=== PATIENT | female | born 1995 | race Two or more races ===

== ENCOUNTER 2023-05-15 19:00 | Observation (INO) | payer OTHER ==
[~2023-05-15] VITALS: Ht 160 cm; Wt 86.6 kg
[2023-05-15] MEDS ORDERED: LACTATED RINGER'S 2,600 ML IV ONE (20:45)
[2023-05-15 22:02] LABS: Basophils # (auto) 0.1 10 ^3/uL (0-0.2); Basophils % (auto) 0.4 % (0.0-2.0); Eosinophils # (auto) 0.1 10 ^3/uL (0-0.8); Eosinophils % (auto) 0.9 % (0.0-7.0); Hemoglobin 10.1 g/dL (12.2-16.2); Lymphocytes # (auto) 2.8 10 ^3/uL (0.4-5.4); Mean Corpuscular Hemoglobin 25.4 pg (28.0-32.0); Mean Corpuscular Hgb Conc. 32.7 g/dL (32.0-36.0); Mean Corpuscular Volume 77.6 fL (80.0-100.0); Monocytes # (auto) 0.7 10 ^3/uL (0-1.3); Monocytes % (auto) 5.1 % (0.0-12.0); Neutrophils # (auto) 9.8 10 ^3/uL (1.6-8.6); Neutrophils % (auto) 72.6 % (37.0-80.0); Red Blood Cells 3.99 10^6/uL (4.0-5.20); Red Cell Distribution Width 14.2 % (11.8-14.3); White Blood Cell 13.5 10^3/uL (4.4-10.8)
[2023-05-15 22:19] LABS: Alanine Aminotransferase 11 U/L (7-40); Albumin 3.7 g/dL (3.2-4.8); Alkaline Phosphatase 95 U/L (46-116); Anion Gap 10 (5-15); Aspartate Aminotransferase 12 U/L (13-40); Blood Urea Nitrogen 6 mg/dL (9-23); Calcium 8.9 mg/dL (8.5-10.1); Carbon Dioxide 20 mmol/L (20-30); Chloride 107 mmol/L (98-107); Glucose 73 mg/dL (74-106); INR 0.98 (0.9-1.15); Partial Thromboplastin Time 30.3 SEC (24.5-34.5); Potassium 3.4 mmol/L (3.5-5.1); Prothrombin Time 10.3 sec (9.3-11.8); Sodium 137 mmol/L (136-145)
[2023-05-15 22:20] LABS: Bilirubin, Total 0.5 mg/dL (0.2-1.0); Total Protein 6.3 g/dL (5.7-8.2)
[2023-05-15 22:25] LABS: Protein, Urine 38.4 mg/dL (0.0-11.9)
[2023-05-15 22:26] LABS: Urine Bacteria NONE SEEN /hpf (None Seen); Urine Blood Negative /uL (Negative); Urine Clarity Clear (Clear); Urine Color Yellow (Yellow); Urine Mucus FEW (None Seen); Urine Protein, UAD 1+ (Negative); Urine Specific Gravity 1.025 (1.001-1.035); Urine WBC 1 /hpf (0 - 5)
[2023-05-15 22:27] LABS: Amphetamine Screen, Urine Neg (NEGATIVE); Barbiturate Scree,Urine Neg (NEGATIVE); Benzodiazephine Screen, Urine Neg (NEGATIVE); Cannabinoid Screen, Urine Pos (NEGATIVE); Cocaine Screen, Urine Neg (NEGATIVE); Creatinine, Urine 171.32 mg/dL (30.0-125.0); Opiate Scree,Urine Neg (NEGATIVE); Phencyclidine Screen, Urine Neg (NEGATIVE); Urine Protein/Creatinine Ratio 0.22
[2023-05-15 22:35] LABS: Uric Acid 4.2 mg/dL (3.1-7.8)
[2023-05-15] MEDS ORDERED: FERR30CA PO (22:57)
[2023-05-15] MEDS ORDERED: PREN-96 PO (22:57)
[2023-05-17 07:06] LABS: Rubella Antibodies, IgG 1.62 index (Immune >0.99)
[2023-05-17 08:06] LABS: RPR Non Reactive (Non Reactive)
== END 2023-05-15 23:14 | disposition home or self-care (01) ==
LOC: LDRP 19:00
PROVIDERS: ADMIT Obstetrics & Gynecology; ATTEND Obstetrics & Gynecology
DX: O99.343 Other mental disorders complicating pregnancy, third trimester (principal); F31.9 Bipolar disorder, unspecified; F43.10 Post-traumatic stress disorder, unspecified; Q23.4 Hypoplastic left heart syndrome; O99.013 Anemia complicating pregnancy, third trimester; W19.XXXA Unspecified fall, initial encounter; Y92.89 Other specified places as the place of occurrence of the external cause; Y93.89 Activity, other specified; Y99.8 Other external cause status
CPT/HCPCS: 36415; 59025; 76805; 80053; 80307; 81001; 81002; 82570; 83036; 84156; 84550; 85025; 85610; 85730; 86592; 86703; 86762; 86850; 86900; 86901; 87340; 94760; 96360; 96361

== ENCOUNTER 2023-05-22 11:44 | Observation (INO) | payer OTHER ==
[~2023-05-22] VITALS: Ht 160 cm; Wt 86.6 kg
[~2023-05-22 11:44] MED LIST: FERR30CA PO; PREN-96 PO
[2023-05-22] MEDS ORDERED: LACTATED RINGER'S 1,000 ML IV ONE (12:45)
[2023-05-22] MEDS ORDERED: ONDANSETRON HCL 4 MG/2 ML VIAL IV ONE (12:45)
[2023-05-22] MEDS ORDERED: DIPHENOXYLATE W/ATROPINE 2.5 MG TAB PO ONE (12:45)
[2023-05-22 13:52] LABS: COVID19 ANTIGEN SOFIA FIA NEGATIVE (NEGATIVE); Rapid Influenza A Negative (Negative); Rapid Influenza B Negative (Negative)
== END 2023-05-22 14:52 | disposition home or self-care (01) ==
LOC: LDRP 11:44 → UNDOADMOB 11:44 → LDRP 12:45
PROVIDERS: ADMIT Obstetrics & Gynecology; ATTEND Obstetrics & Gynecology
DX: O21.2 Late vomiting of pregnancy (principal); Z20.822 Contact with and (suspected) exposure to COVID-19; O26.893 Other specified pregnancy related conditions, third trimester; E86.0 Dehydration; Z3A.31 31 weeks gestation of pregnancy
CPT/HCPCS: 36415; 59025; 81002; 87426; 87804; 94760; 96374; G0378; J2405; 96360; 96361

== ENCOUNTER 2023-07-11 10:07 | Observation (INO) | payer MEDICAID, OTHER ==
[~2023-07-11] VITALS: Ht 160 cm; Wt 88.0 kg
[2023-07-11 12:08] LABS: Fern Testing Negative
[2023-07-11] MEDS ORDERED: LACTATED RINGER'S 1,000 ML IV ONE (12:45)
== END 2023-07-11 15:00 | disposition home or self-care (01) ==
LOC: LDRP 10:07 → UNDOADMOB 10:07 → LDRP 10:35
PROVIDERS: ADMIT Obstetrics & Gynecology; ATTEND Obstetrics & Gynecology
DX: O26.893 Other specified pregnancy related conditions, third trimester (principal); R10.2 Pelvic and perineal pain; R10.9 Unspecified abdominal pain; O62.9 Abnormality of forces of labor, unspecified; Z3A.38 38 weeks gestation of pregnancy
CPT/HCPCS: 59025; 76818; 81002; 84112; 94760; 96360; G0378; Q0114

== ENCOUNTER 2023-07-19 09:48 | Observation (INO) | payer MEDICAID | END 2023-07-19 11:14 | disposition home or self-care (01) | LOC: LDRP 09:48 → UNDOADMOB 09:48 → LDRP 10:44 → UNDODISOB 11:14 | PROVIDERS: ADMIT Obstetrics & Gynecology; ATTEND Obstetrics & Gynecology | DX: O47.1 False labor at or after 37 completed weeks of gestation (principal); O99.323 Drug use complicating pregnancy, third trimester; F12.90 Cannabis use, unspecified, uncomplicated; Z3A.39 39 weeks gestation of pregnancy; Z91.040 Latex allergy status | CPT/HCPCS: 59025; 81002; 94760; G0378 ==

== ENCOUNTER 2023-07-19 20:14 | Inpatient (IN) | payer MEDICAID ==
[~2023-07-19] VITALS: Ht 160 cm; Wt 88.5 kg
[2023-07-19 21:45] LABS: Fern Testing Negative
[2023-07-20] MEDS ORDERED: MORPHINE SULFATE 4 MG/ML SYR/VIAL IM ONE
[2023-07-20] MEDS ORDERED: PROMETHAZINE HCL 25 MG/ML 1ML IV ONE
[2023-07-20] MEDS ORDERED: MORPHINE SULFATE 4 MG/ML SYR/VIAL ONE (00:06)
[2023-07-20] MEDS ORDERED: PROMETHAZINE HCL 25 MG/ML 1ML ONE (00:06)
[2023-07-20] MEDS ORDERED: DERMOPLAST 60ML BOTTLE TOP PRN (04:15)
[2023-07-20] MEDS ORDERED: PENICILLIN G POT 5MIL/D5 50ML 50 ML IV ONE ×2 (04:15→04:45)
[2023-07-20] MEDS ORDERED: PROMETHAZINE HCL 25 MG/ML 1ML IV PRN (04:15)
[2023-07-20] MEDS ORDERED: WITCH HAZEL-GLYCERIN PAD TOP PRN (04:15)
[2023-07-20] MEDS ORDERED: LACTATED RINGER'S 1,000 ML IV SCH (04:15)
[2023-07-20] MEDS ORDERED: PHISODERM TOP SOLN 240ML BTL TOP PRN (04:15)
[2023-07-20] MEDS ORDERED: LIDOCAINE 2%HCL (LOCAL ANESTH.) INJ 20ML MDV IJ PRN (04:15)
[2023-07-20] MEDS ORDERED: BUTORPHANOL TARTRATE 2 MG/1 ML VIAL IV PRN ×2 (04:15)
[2023-07-20 04:37] LABS: Basophils # (auto) 0 10 ^3/uL (0-0.2); Basophils % (auto) 0.2 % (0.0-2.0); Monocytes # (auto) 0.8 10 ^3/uL (0-1.3)
[2023-07-20 04:38] LABS: Eosinophils # (auto) 0.2 10 ^3/uL (0-0.8); Eosinophils % (auto) 1.1 % (0.0-7.0); Hematocrit 30.4 % (36.0-46.0); Hemoglobin 9.9 g/dL (12.2-16.2); Lymphocytes % (auto) 19.1 % (10.0-50.0); Mean Corpuscular Hemoglobin 24.5 pg (28.0-32.0); Mean Corpuscular Hgb Conc. 32.6 g/dL (32.0-36.0); Mean Corpuscular Volume 75.2 fL (80.0-100.0); Monocytes % (auto) 5.2 % (0.0-12.0); Neutrophils # (auto) 11.6 10 ^3/uL (1.6-8.6); Neutrophils % (auto) 74.4 % (37.0-80.0); Red Blood Cells 4.05 10^6/uL (4.0-5.20); Red Cell Distribution Width 14.7 % (11.8-14.3); White Blood Cell 15.6 10^3/uL (4.4-10.8)
[2023-07-20 04:53] LABS: Alanine Aminotransferase 11 U/L (7-40); Albumin 3.8 g/dL (3.2-4.8); Alkaline Phosphatase 158 U/L (46-116); Anion Gap 5 (5-15); Aspartate Aminotransferase 12 U/L (13-40); Bilirubin, Total 0.4 mg/dL (0.2-1.0); Calcium 8.8 mg/dL (8.7-10.4); Carbon Dioxide 23 mmol/L (20-30); Chloride 107 mmol/L (98-107); Glucose 76 mg/dL (74-106); Potassium 3.6 mmol/L (3.5-5.1); Sodium 135 mmol/L (136-145); Total Protein 6.5 g/dL (5.7-8.2)
[2023-07-20 04:55] LABS: INR 0.93 (0.9-1.15); Partial Thromboplastin Time 29.7 SEC (24.5-34.5); Prothrombin Time 9.8 sec (9.3-11.8)
[2023-07-20 05:08] LABS: BUN/Creatinine Ratio 8.5 (10.0-20.0); Blood Urea Nitrogen < 5 mg/dL (9-23)
[2023-07-20] MEDS ORDERED: BUTORPHANOL TARTRATE 2 MG/1 ML VIAL ONE (05:20)
[2023-07-20 05:31] LABS: Urine Bacteria NONE SEEN /hpf (None Seen); Urine Blood 2+ /uL (Negative); Urine Clarity Clear (Clear); Urine Color Yellow (Yellow); Urine Mucus FEW (None Seen); Urine Protein, UAD Negative (Negative); Urine Specific Gravity 1.012 (1.001-1.035); Urine Urobilinogen Normal (Negative); Urine WBC 10 /hpf (0 - 5)
[2023-07-20 05:40] LABS: Amphetamine Screen, Urine Neg (NEGATIVE); Barbiturate Scree,Urine Neg (NEGATIVE); Benzodiazephine Screen, Urine Neg (NEGATIVE); Cannabinoid Screen, Urine Pos (NEGATIVE); Cocaine Screen, Urine Neg (NEGATIVE); Opiate Scree,Urine Pos (NEGATIVE); Phencyclidine Screen, Urine Neg (NEGATIVE)
[2023-07-20] MEDS ORDERED: TERBUTALINE SULFATE 1 MG/ML 1ML VIAL SC PRN (05:45)
[2023-07-20] MEDS ORDERED: LACT. RINGERS/OXYTOCIN 20UNITS 1,000 ML IV SCH (05:45)
[2023-07-20] MEDS ORDERED: fentaNYL CITRATE 100 MCG/2 ML VL IV ONE (06:45)
[2023-07-20] MEDS ORDERED: ePHEDrine SULFATE 50 MG/ML AMP IV ONE (06:45)
[2023-07-20] MEDS ORDERED: NALOXONE HCL 0.4 MG/ML VIAL IV ONE (06:45)
[2023-07-20] MEDS ORDERED: LACTATED RINGER'S 2,000 ML IV ONE (06:45)
[2023-07-20] MEDS ORDERED: fentaNYL CITRATE 100 MCG/2 ML VL ONE (06:54)
[2023-07-20] MEDS ORDERED: ePHEDrine SULFATE 50 MG/ML AMP ONE (06:55)
[2023-07-20] MEDS ORDERED: ROPIVACAINE HCL 100 ML ONE ×2 (06:55→12:52)
[2023-07-20] MEDS ORDERED: LACT. RINGERS/OXYTOCIN 20UNITS 500 ML IV ONE ×2 (08:00→08:30)
[2023-07-20] MEDS ORDERED: LACT. RINGERS/OXYTOCIN 20UNITS 1,000 ML IV ONE (08:06)
[2023-07-20] MEDS ORDERED: PENICILLIN G POTASSIUM 2,500,000 UNITS in D5W 5% 50 ML IV SCH (08:15)
[2023-07-20] MEDS ORDERED: PENICILLIN G POT 5MILLION UNIT VIAL ONE (09:02)
[2023-07-20] MEDS ORDERED: PHISODERM TOP SOLN 240ML BTL TOP ONE (10:30)
[2023-07-20] MEDS ORDERED: WITCH HAZEL-GLYCERIN PAD TOP ONE (10:30)
[2023-07-20] MEDS ORDERED: LIDOCAINE 2%HCL (LOCAL ANESTH.) INJ 20ML MDV ONE (10:30)
[2023-07-20] MEDS ORDERED: DERMOPLAST 60ML BOTTLE TOP ONE (10:30)
[2023-07-20] MEDS ORDERED: ONDANSETRON ODT 4 MG TAB PO PRN (16:30)
[2023-07-20] MEDS ORDERED: ACETAMINOPHEN 325 MG TAB PO PRN (16:30)
[2023-07-20] MEDS ORDERED: IBUPROFEN 600 MG TAB PO ONE (18:59)
[2023-07-20 19:00] VITALS: BP 126/74; PULSE 95; RESP 18; TEMP 98.5; O2SAT 98
[2023-07-20] MEDS: IBUPROFEN 600 MG TAB PO PRN (19:01)
[2023-07-20] MEDS ORDERED: DOCUSATE SOD 100 MG CAP PO SCH (22:00)
[2023-07-20 22:42] VITALS: BP 137/85; PULSE 88; RESP 18; TEMP 97.9; O2SAT 98
[2023-07-20] MEDS ORDERED: DOCUSATE SOD 100 MG CAP PO ONE (22:50)
[2023-07-21 03:00] VITALS: BP 130/84; PULSE 90; RESP 18; TEMP 98; O2SAT 99
[2023-07-21] MEDS: IBUPROFEN 600 MG TAB PO PRN (05:40)
[2023-07-21 07:16] VITALS: BP 120/62; PULSE 93; RESP 17; TEMP 97.7; O2SAT 97
[2023-07-21 10:54] VITALS: BP 129/69; PULSE 81; RESP 17; TEMP 98.2; O2SAT 97
[2023-07-23 05:07] LABS: RPR Non Reactive (Non Reactive)
== END 2023-07-21 14:15 | disposition home or self-care (01) | DRG 560 ==
LOC: LDRP 20:14 → OBSVTOIN 07-20 03:53 → LDRP 07-20 03:54
PROVIDERS: ADMIT Obstetrics & Gynecology; ATTEND Obstetrics & Gynecology
PROC: 10D07Z6 Extraction of Products of Conception, Vacuum, Via Natural or Artificial Opening (ICD-10-PCS; principal; 2023-07-20)
PROC: 3E0R3BZ Introduction of Anesthetic Agent into Spinal Canal, Percutaneous Approach (ICD-10-PCS; 2023-07-20)
PROC: 00HU33Z Insertion of Infusion Device into Spinal Canal, Percutaneous Approach (ICD-10-PCS; 2023-07-20)
PROC: 0UQGXZZ Repair Vagina, External Approach (ICD-10-PCS; 2023-07-20)
DX: O48.0 Post-term pregnancy (principal); Z37.0 Single live birth; O71.4 Obstetric high vaginal laceration alone; D50.9 Iron deficiency anemia, unspecified; O99.02 Anemia complicating childbirth; O99.824 Streptococcus B carrier state complicating childbirth; Z3A.39 39 weeks gestation of pregnancy; Z88.6 Allergy status to analgesic agent
CPT/HCPCS: 36415; 59025; 59409; 62282; 76818; 80053; 80307; 81001; 81002; 84112; 85025; 85610; 85730; 86592; 86850; 86900; 86901; 94760; 96365; 96366; 96372; G0378; J2540; J2590; J7060

== ENCOUNTER 2024-06-25 07:05 | Observation (INO) | payer MEDICAID ==
[~2024-06-25] VITALS: Ht 160 cm; Wt 91.6 kg
== END 2024-06-25 08:07 | disposition home or self-care (01) ==
LOC: LDRP 07:05
PROVIDERS: ADMIT Obstetrics & Gynecology; ATTEND Obstetrics & Gynecology
DX: O36.8120 Decreased fetal movements, second trimester, not applicable or unspecified (principal); O99.332 Smoking (tobacco) complicating pregnancy, second trimester; F17.210 Nicotine dependence, cigarettes, uncomplicated; O99.322 Drug use complicating pregnancy, second trimester; F12.90 Cannabis use, unspecified, uncomplicated; Z3A.21 21 weeks gestation of pregnancy; Z88.6 Allergy status to analgesic agent; Z91.02 Food additives allergy status; Z79.899 Other long term (current) drug therapy
CPT/HCPCS: 59025; 81002; 94760; G0378

== ENCOUNTER 2024-08-17 10:53 | Observation (INO) | payer MEDICAID ==
[2024-08-17 11:46] LABS: Basophils # (auto) 0.1 10 ^3/uL (0-0.2); Eosinophils # (auto) 0.1 10 ^3/uL (0-0.8); Eosinophils % (auto) 0.9 % (0.0-7.0); Lymphocytes # (auto) 2.2 10 ^3/uL (0.4-5.4); Red Cell Distribution Width 14.9 % (11.8-14.3); White Blood Cell 11.9 10^3/uL (4.4-10.8)
[2024-08-17 11:48] LABS: Basophils % (auto) 0.6 % (0.0-2.0); Hematocrit 32.9 % (36.0-46.0); Hemoglobin 10.6 g/dL (12.2-16.2); Lymphocytes % (auto) 18.3 % (10.0-50.0); Mean Corpuscular Hemoglobin 24.2 pg (28.0-32.0); Mean Corpuscular Hgb Conc. 32.2 g/dL (32.0-36.0); Mean Corpuscular Volume 75.2 fL (80.0-100.0); Monocytes # (auto) 0.6 10 ^3/uL (0-1.3); Monocytes % (auto) 5.4 % (0.0-12.0); Neutrophils # (auto) 8.9 10 ^3/uL (1.6-8.6); Neutrophils % (auto) 74.8 % (37.0-80.0); Nucleated Red Blood Cells % 0.1 %; Platelet Count (auto) 234 10^3/uL (140-450); Red Blood Cells 4.38 10^6/uL (4.0-5.20)
--- NOTE | 2024-08-17 12:04 | DVH ---
LIMITED OB ULTRASOUND > 14 WKS: HISTORY: PTL/PIH R/O TECHNIQUE: Multiple real-time grayscale images of the gravid uterus with duplex Doppler color flow an d M-mode spectral analysis. TRANSDUCER: Trans abdominal FINDINGS: IUP single live fetus at 27 weeks 6 days based on composite averages of the BPD, head circumference, abdominal circumference and femur length Estimated weight 1166 grams heart rate 133 beats per minute VINEET 9.9 cm Cervix measures 3.4 cm. Cephalic Presentation Posterior Placenta without previa or abruption. The placenta appears low lying. IMPRESSION: IUP single live fetus at 27 weeks 6 days AUA corresponding to an BLAIRE of 11/10/24. The placenta appears low lying.
[2024-08-17 12:06] LABS: Alanine Aminotransferase 13 U/L (7-40); Albumin 3.9 g/dL (3.2-4.8); Anion Gap 7 (5-15); BUN/Creatinine Ratio 11.1 (10.0-20.0); Bilirubin, Total 0.4 mg/dL (0.2-1.0); Calcium 9.6 mg/dL (8.7-10.4); Carbon Dioxide 22 mmol/L (20-31); Chloride 107 mmol/L (98-107); Glucose 85 mg/dL (74-106); Potassium 3.7 mmol/L (3.5-5.1); Sodium 136 mmol/L (136-145); Total Protein 6.7 g/dL (5.7-8.2)
[2024-08-17 12:12] LABS: Alkaline Phosphatase 124 U/L (46-116); Aspartate Aminotransferase 13 U/L (13-40); Blood Urea Nitrogen 7 mg/dL (9-23)
[2024-08-17 12:13] LABS: Urine Bacteria None Seen /hpf (None Seen)
[2024-08-17 12:21] LABS: INR 0.93 (0.9-1.15); Partial Thromboplastin Time 30.2 SEC (24.5-34.5); Prothrombin Time 9.9 sec (9.3-11.8)
[2024-08-17 12:27] LABS: Urine Blood Negative /uL (Negative); Urine Clarity Clear (Clear); Urine Color Yellow (Yellow); Urine Protein, UAD TRACE (Negative); Urine Specific Gravity 1.024 (1.001-1.035); Urine Squamous Epithelial Cell FEW /hpf (<5); Urine Urobilinogen 2 mg/dL (Negative); Urine WBC 1 /hpf (0 - 5)
[2024-08-17 12:38] LABS: Protein, Urine 31.3 mg/dL (1-14)
[2024-08-17 12:41] LABS: Creatinine, Urine 140.92 mg/dL (30.0-125.0); Urine Protein/Creatinine Ratio 0.22
--- NOTE | 2024-08-17 13:02 | DVHDS2 ---
Physician Discharge Progress N Final Diagnosis: IUP 27 wk, migraine headache PIH ruled out Pelvic pressure, labor ruled out Operations or Procedures: Operations or Procedures PIH labs OB Ultrasound WNL cx length, no contractions NST Commentary: Commentary BP's all normal, urine prot / cr ratio < 0.3 (Normal) Condition on Discharge: Stable Disposition: Home Discharge Instructions: Diet: Regular Activity: Light activity Follow Up/Referral: F/U w/ Maternal health MD as scheduled Medications: N/A Follow Up Care: Discharge Statement: "Patient was advised to return to the ER or call 911 if any headaches, dizziness, shortness of breath, chest pain, abdominal pain, bleeding, fevers, or worsening of medical condition. Patient was counseled about treatment plan, medications, possible side effects, patientverbalized understanding. All questions were answered to the best of my ability. This discharge took greater then 30 minutes in planning, reviewing documentation, counseling the patient, and discussing with other team members." SONIDO ROONEY DO Aug 17, 2024 13:02
== END 2024-08-17 13:20 | disposition home or self-care (01) ==
LOC: LDRP 10:53 → UNDOADMOB 10:53 → LDRP 11:04 → UNDODISOB 13:20
PROVIDERS: ADMIT Obstetrics & Gynecology; ATTEND Obstetrics & Gynecology
DX: O99.352 Diseases of the nervous system complicating pregnancy, second trimester (principal); G43.909 Migraine, unspecified, not intractable, without status migrainosus; Z3A.27 27 weeks gestation of pregnancy; Z79.899 Other long term (current) drug therapy; Z98.890 Other specified postprocedural states
CPT/HCPCS: 36415; 59025; 76815; 80053; 81001; 81002; 82570; 84156; 84550; 85025; 85610; 85730; 94760; G0378

== ENCOUNTER 2024-09-12 10:36 | Observation (INO) | payer MEDICAID ==
[~2024-09-12] VITALS: Ht 160 cm; Wt 93.4 kg
[2024-09-12 11:05] LABS: Urine Bacteria FEW /hpf (None Seen); Urine Blood Negative /uL (Negative); Urine Color Light-Yellow (Yellow); Urine Mucus FEW (None Seen); Urine Protein, UAD TRACE (Negative); Urine Specific Gravity 1.018 (1.001-1.035); Urine Squamous Epithelial Cell MOD /hpf (<5); Urine Urobilinogen Normal (Negative); Urine WBC 2 /HPF (0-5)
[2024-09-12 11:07] LABS: Urine Clarity Hazy (Clear)
[2024-09-12] MEDS: ACETAMINOPHEN 325 MG TAB PO ONE (11:55)
--- NOTE | 2024-09-13 07:49 | DVHDS2 ---
Physician Discharge Progress N Final Diagnosis: Abdominal pain UTI Secondary Diagnosis: NST Operations or Procedures: Operations or Procedures NST Condition on Discharge: Stable Disposition: Home Discharge Instructions: Diet: Regular Activity: Light activity Activity comment: Pelvic rest, PTL precautions discussed Follow Up/Referral: Keep all regularly scheduled OB appointments Medications: Rx Macrobid 100mg PO BID, Tylenol OTC prn pain Follow Up Care: Discharge Statement: "Patient was advised to return to the ER or call 911 if any headaches, dizziness, shortness of breath, chest pain, abdominal pain, bleeding, fevers, or worsening of medical condition. Patient was counseled about treatment plan, medications, possible side effects, patientverbalized understanding. All questions were answered to the best of my ability. This discharge took greater then 30 minutes in planning, reviewing documentation, counseling the patient, and discussing with other team members." Visit Coding OBGYN Date of Service: Sep 12, 2024 Billing Provider: SONIDO ROONEY DO DRAG OUT MAN Common Visit Codes: 26601-GMA/OBS SAME DATE (MOD) DRAG OUT MAN Procedure Codes: 19058-63- NON-STRESS TEST SONIDO ROONEY DO Sep 13, 2024 07:49
== END 2024-09-12 12:08 | disposition home or self-care (01) ==
LOC: LDRP 10:36
PROVIDERS: ADMIT Obstetrics & Gynecology; ATTEND Obstetrics & Gynecology
DX: O23.43 Unspecified infection of urinary tract in pregnancy, third trimester (principal); N39.0 Urinary tract infection, site not specified; O99.891 Other specified diseases and conditions complicating pregnancy; M54.9 Dorsalgia, unspecified; R10.9 Unspecified abdominal pain; Z98.890 Other specified postprocedural states; Z79.899 Other long term (current) drug therapy; Z3A.32 32 weeks gestation of pregnancy
CPT/HCPCS: 59025; 81001; 81002; 87086; 94760; G0378

== ENCOUNTER 2024-09-26 18:24 | Observation (INO) | payer OTHER, MEDICAID ==
--- NOTE | 2024-09-26 20:03 | DVH ---
LIMITED OB ULTRASOUND > 14 WKS: HISTORY: placental position and cervical length TECHNIQUE: Multiple real-time grayscale images of the gravid uterus with duplex Doppler color flow an d M-mode spectral analysis. TRANSDUCER: Transabdominal COMPARISON: US OBSTERICAL LIMITED on DOS: 08/17/24 FINDINGS/IMPRESSION: heart rate 167 beats per minute VINEET 15.1 cm Cervix is closed and measures 4.8 cm Cephalic Presentation Posterior Placenta without previa or abruption. Low-lying placenta approximately 3 cm from the cervix . Placental venous [place] is present measuring 2.3 cm.
--- NOTE | 2024-09-27 12:53 | DVHDS2 ---
Discharge Summary Date of Admission Sep 26, 2024 at 18:24 Date of Discharge: Sep 26, 2024 Admitting Diagnosis Rule out labor intrauterine Labs/Diagnostic Data: In/a Brief Hx & Hospital Course: NST performed reassuring Consults/Reason for consult Rule out labor Operations or Procedures N/a Condition at Discharge: Good Final Diagnosis/Problems List contractions no labor reassuring heart tones Discharge Disposition: Home SNF Discharge Will this Physician continue t: No Discharge Instruct/Medications Diet: Regular Activity: Light activity (Pelvic rest labor precautions SROM precautions) Follow Up/Referral: Less than a week primary OB or p.r.n. worsening contractions or leaking fluid or bleeding and/or decreased movement Discharge Statement: "Patient was advised to return to the ER or call 911 if any headaches, dizziness, shortness of breath, chest pain, abdominal pain, bleeding, fevers, or worsening of medical condition. Patient was counseled about treatment plan, medications, possible side effects, patientverbalized understanding. All questions were answered to the best of my ability. This discharge took greater then 30 minutes in planning, reviewing documentation, counseling the patient, and discussing with other team members." Discharge Care Plan Problem Risk for injury/Safety ASSESSMENT ASSESSMENT Assessment No labor Visit Coding OBGYN Date of Service: Sep 26, 2024 Billing Provider: CAMDEN GUZMAN DO NAILHEAD SETTER Common Visit Codes: 09994-BKJ/OBS SAME DATE (LOW), 57757-LJX/OBS SAME DATE (HIGH), 91239-DGD/OBS DISCH DAY <30MIN NAILHEAD SETTER Procedure Codes: 25164-84- NON-STRESS TEST CAMDEN GUZMAN DO Sep 27, 2024 12:53
== END 2024-09-26 20:05 | disposition home or self-care (01) ==
LOC: LDRP 18:24
PROVIDERS: ADMIT Obstetrics & Gynecology; ATTEND Obstetrics & Gynecology
DX: O26.893 Other specified pregnancy related conditions, third trimester (principal); R10.2 Pelvic and perineal pain; Z98.890 Other specified postprocedural states; Z79.899 Other long term (current) drug therapy; Z3A.34 34 weeks gestation of pregnancy
CPT/HCPCS: 59025; 76815; 76817; 81002; 94760; G0378

== ENCOUNTER 2024-10-04 05:21 | Observation (INO) | payer MEDICAID, OTHER ==
[~2024-10-04] VITALS: Ht 160 cm; Wt 93.0 kg
[2024-10-04 07:35] LABS: Vaginal Bacteria Few; Vaginal Clue Cells Few; Vaginal Epithelial Cells Few; Vaginal Trichomonas Not Present
[2024-10-04 07:43] LABS: Urine Bacteria FEW /hpf (None Seen); Urine Squamous Epithelial Cell MOD /hpf (<5); Urine WBC 6 /HPF (0-5)
--- NOTE | 2024-10-04 07:45 | DVH ---
BIOPHYSICAL PROFILE HISTORY: Decreased Movement Comparison Study: None available at time of dictation. TECHNIQUE: Multiple real-time grayscale sonographic images through the gravid uterus of the fetus wit h duplex doppler color flow and M-mode spectral analysis FINDINGS: BIOPHYSICAL PROFILE: breathing score: 2 movement score: 2 tone score: 2 Quantitative VINEET score: 2 (VINEET: 13.9 cm.) Total score: 8/8 Single live fetus in cephalic presentation. heart rate 134 beats per minute. posterior placenta without previa or abruption Biophysical profile score 8/8 corresponding to an BLAIRE of 11/02/24 IMPRESSION: Biophysical profile score: 8/8
--- NOTE | 2024-10-04 07:52 | DVHDS2 ---
Physician Discharge Progress N Final Diagnosis: IUP at 35w 6d Bacterial Vaginosis UTI Vulva Candidiasis ReactiveNST Normal BioPhysical profile Operations or Procedures: Operations or Procedures with EDC of 11/01/24 presents to L&D Reports constant back pain from tailbone to the vagina that started last night at about 9pm, not relieved with Tylenol or Warm /hot shower. It hurts so bad that she is unable to squat.She reports no contraction or abdominal pain. Reports decreased movements, no leakage of fluid or vaginal bleeding States she receives care with Dr Ortiz at [facility] Per pt pain is constant, not intermittent O: A&O x3 Appears uncomfortable No CVA tenderness Abdomen palpate soft Excoriation of skin noted on the vulva FHR baseline 135 moderate variability & Accelerations, no deceleration No contraction on monitor, none palpable P: OB US for BPP [place]: Urinalysis Re-assessment: BPP 8/8 NST Reactive [place]: + clue cells UA: urine dipstick: Large leukocyte A: IUP @ 35w 6d Low Back Pain Bacterial Vaginosis UTI vulva candidiasis P: Discharge home on following medications: Cephalexin 500mg every 6hours x 7d Metronidazole vaginal gel. 1 Applicatorful at bedtime x 5days 4% Lidocaine Patch every 12 hours as needed Clotrimazole cream 1%. Apply to affected area 2 times a day as needed. Keep Scheduled appointment with OB provider on 10/06/24; seek care sooner if needed 3rd trimester emergency S&S FMC, PTL & pre-eclampsia precautions reviewed with pt; advised to seek health care if any Condition on Discharge: Stable Disposition: Home Discharge Instructions: Diet: Regular Activity: No Restrictions, As Tolerated Activity comment: Balance activities with rest periods Medications: Cephalexin 500mg every 6hours x 7d Metronidazole vaginal gel. 1 Applicatorful at bedtime x 5days 4% Lidocaine Patch every 12 hours as needed Clotrimazole cream 1%. Apply to affected area 2 times a day as needed. Follow Up Care: Discharge Statement: "Patient was advised to return to the ER or call 911 if any headaches, dizziness, shortness of breath, chest pain, abdominal pain, bleeding, fevers, or worsening of medical condition. Patient was counseled about treatment plan, medications, possible side effects, patientverbalized understanding. All questions were answered to the best of my ability. This discharge took greater then 30 minutes in planning, reviewing documentation, counseling the patient, and discussing with other team members." Visit Coding OBGYN Date of Service: Oct 04, 2024 Billing Provider: TRACY LEBLANC CNM STATISTICAL FINANCIAL ANALYST Common Visit Codes: 00665-PCR/OBS SAME DATE (HIGH) TRACY LEBLANC CNM Oct 04, 2024 07:52
[2024-10-04] MEDS ORDERED: CEPH500C PO (08:32)
[2024-10-04] MEDS ORDERED: CLOT2CRE5 VA (08:32)
[2024-10-04] MEDS ORDERED: LIDO5PAD12 EX (08:32)
[2024-10-04] MEDS ORDERED: MET075VC VG (08:32)
[2024-10-13] MEDS ORDERED: TERC0.4C2 VG (04:18)
== END 2024-10-04 11:32 | disposition home or self-care (01) ==
LOC: LDRP 05:21
PROVIDERS: ADMIT Obstetrics & Gynecology; ATTEND Obstetrics & Gynecology
DX: O23.43 Unspecified infection of urinary tract in pregnancy, third trimester (principal); N39.0 Urinary tract infection, site not specified; O98.813 Other maternal infectious and parasitic diseases complicating pregnancy, third trimester; B37.31 Acute candidiasis of vulva and vagina; Z98.890 Other specified postprocedural states; Z79.899 Other long term (current) drug therapy; Z3A.35 35 weeks gestation of pregnancy
CPT/HCPCS: 76818; 81002; 87210; 94760; G0378; 59025; 81015

== ENCOUNTER 2024-10-11 13:37 | Observation (INO) | payer MEDICAID, OTHER ==
[~2024-10-11 13:37] MED LIST changes: +CEPH500C PO; +CLOT2CRE5 VA; +LIDO5PAD12 EX; +MET075VC VG
--- NOTE | 2024-10-11 16:17 | DVH ---
Procedure: US BIOPHYSICAL PROFILE 10/11/2024 03:48 PM Indication: DECREASED MOVEMENT Comparison: US BIOPHYSICAL PROFILE on DOS: 10/04/24, US BIOPHYSICAL PROFILE on DOS: 07/19/23, US BIOPHY SICAL PROFILE on DOS: 07/11/23 Technique: Sonogram of gravid uterus utilizing grayscale and color techniques. FINDINGS: Single living intrauterine gestation. Presentation: Cephalic Placenta: Posterior heart rate: 142 bpm VINEET: 17.6 cm, DVP: 6.7 cm Maternal cervix: Not visualized Biophysical Profile: breathing score: 2 movement score: 2 tone: 2 Quantitative VINEET score: 2 Total score: 8/8 IMPRESSION: 1. Single living as above. 2. Biophysical profile score: 8/8.
--- NOTE | 2024-10-12 09:31 | DVHDS2 ---
Discharge Summary Date of Admission Oct 11, 2024 at 13:37 Date of Discharge: Oct 11, 2024 Admitting Diagnosis decreased movement, vaginal discharge Wounds: none Labs/Diagnostic Data: none NST reassuring Brief Hx & Hospital Course: Patient diagnosed with monilial resistant vaginitis..... Patient hydrated Consults/Reason for consult none Operations or Procedures none Condition at Discharge: Good Final Diagnosis/Problems List monilial vaginosis , dehydration Discharge Disposition: Home SNF Discharge Will this Physician continue t: No Discharge Instruct/Medications Diet: Regular Activity: Light activity (kick counts labor and SROM precautions) Activity comment: PELVIC REST, NO DOUCHING, SEX OR ANYTHING IN THE VAGINA X2 WEEKS Medications: Terozol 7 cream Discharge Statement: "Patient was advised to return to the ER or call 911 if any headaches, dizziness, shortness of breath, chest pain, abdominal pain, bleeding, fevers, or worsening of medical condition. Patient was counseled about treatment plan, medications, possible side effects, patientverbalized understanding. All questions were answered to the best of my ability. This discharge took greater then 30 minutes in planning, reviewing documentation, counseling the patient, and discussing with other team members." ASSESSMENT ASSESSMENT Assessment Visit Coding OBGYN Date of Service: Oct 12, 2024 Billing Provider: CAMDEN GUZMAN DO WATER TENDER Common Visit Codes: 80168-VFB/OBS SAME DATE (LOW), 64810-CQC/OBS SAME DATE (MOD), 17495-ETJ/OBS SAME DATE (HIGH) WATER TENDER Procedure Codes: 68364-22- NON-STRESS TEST, 54931-RQXW W/ CARE CAMDEN GUZMAN DO Oct 12, 2024 09:31
== END 2024-10-11 17:30 | disposition home or self-care (01) ==
LOC: LDRP 13:37
PROVIDERS: ADMIT Obstetrics & Gynecology; ATTEND Obstetrics & Gynecology
DX: O36.8130 Decreased fetal movements, third trimester, not applicable or unspecified (principal); O46.93 Antepartum hemorrhage, unspecified, third trimester; O99.283 Endocrine, nutritional and metabolic diseases complicating pregnancy, third trimester; E86.0 Dehydration; Z98.890 Other specified postprocedural states; Z79.899 Other long term (current) drug therapy; Z3A.37 37 weeks gestation of pregnancy
CPT/HCPCS: 59025; 76819; 81002; 94760; G0378; 76818

== ENCOUNTER 2024-10-12 15:23 | Observation (INO) | payer MEDICAID, OTHER ==
[2024-10-12 16:32] LABS: Basophils # (auto) 0 10 ^3/uL (0-0.2); Basophils % (auto) 0.2 % (0.0-2.0); Eosinophils # (auto) 0.1 10 ^3/uL (0-0.8); Eosinophils % (auto) 0.6 % (0.0-7.0); Hematocrit 29.2 % (36.0-46.0); Hemoglobin 9.5 g/dL (12.2-16.2); Lymphocytes # (auto) 1.8 10 ^3/uL (0.4-5.4); Lymphocytes % (auto) 17.2 % (10.0-50.0); Mean Corpuscular Hemoglobin 23.8 pg (28.0-32.0); Mean Corpuscular Hgb Conc. 32.6 g/dL (32.0-36.0); Mean Corpuscular Volume 73.1 fL (80.0-100.0); Monocytes # (auto) 0.6 10 ^3/uL (0-1.3); Monocytes % (auto) 5.5 % (0.0-12.0); Neutrophils # (auto) 7.8 10 ^3/uL (1.6-8.6); Neutrophils % (auto) 76.5 % (37.0-80.0); Platelet Count (auto) 234 10^3/uL (140-450); Red Cell Distribution Width 15.7 % (11.8-14.3); White Blood Cell 10.2 10^3/uL (4.4-10.8)
[2024-10-12 16:42] LABS: Urine Bacteria FEW /hpf (None Seen); Urine Blood Negative /uL (Negative); Urine Clarity Clear (Clear); Urine Color Yellow (Yellow); Urine Mucus FEW (None Seen); Urine Protein, UAD 1+ (Negative); Urine Specific Gravity 1.019 (1.001-1.035); Urine Squamous Epithelial Cell FEW /hpf (<5); Urine Urobilinogen 4 mg/dL (Negative); Urine WBC < 1 /HPF (0-5); Urine pH 8.5 (5.0-9.0)
[2024-10-12 16:44] LABS: INR 0.94 (0.9-1.15); Partial Thromboplastin Time 30.8 SEC (24.5-34.5)
[2024-10-12 16:48] LABS: Protein, Urine 47.6 mg/dL (1-14)
[2024-10-12 16:50] LABS: Alanine Aminotransferase 13 U/L (7-40); Albumin 3.7 g/dL (3.2-4.8); Anion Gap 9 (5-15); Aspartate Aminotransferase 22 U/L (13-40); Bilirubin, Total 0.5 mg/dL (0.2-1.0); Calcium 9.3 mg/dL (8.7-10.4); Carbon Dioxide 24 mmol/L (20-31); Sodium 140 mmol/L (136-145); Total Protein 6.1 g/dL (5.7-8.2); Uric Acid 3.9 mg/dL (3.1-7.8)
[2024-10-12 16:51] LABS: Alkaline Phosphatase 135 U/L (46-116); BUN/Creatinine Ratio 8.3 (10.0-20.0); Blood Urea Nitrogen < 5 mg/dL (9-23); Chloride 107 mmol/L (98-107); Glucose 72 mg/dL (74-106); Potassium 3.4 mmol/L (3.5-5.1)
[2024-10-12 16:51] LABS: Creatinine, Urine 120.82 mg/dL (30.0-125.0); Urine Protein/Creatinine Ratio 0.39
[2024-10-12 19:01] LABS: Amphetamine Screen, Urine Neg (NEGATIVE); Barbiturate Scree,Urine Neg (NEGATIVE); Benzodiazephine Screen, Urine Neg (NEGATIVE); Cannabinoid Screen, Urine Pos (NEGATIVE); Cocaine Screen, Urine Neg (NEGATIVE); Opiate Scree,Urine Neg (NEGATIVE); Phencyclidine Screen, Urine Neg (NEGATIVE)
--- NOTE | 2024-10-13 00:22 | DVHDS2 ---
Discharge Summary Date of Admission Oct 12, 2024 at 15:23 Date of Discharge: Oct 12, 2024 Admitting Diagnosis 37 weeks pih Wounds: none Labs/Diagnostic Data: Laboratory Results Test 10/12/24 16:21 10/12/24 16:11 Urine Color Yellow (Yellow) Urine Clarity Clear (Clear) Urine pH 8.5 (5.0-9.0) Urine Specific [place] 1.019 (1.001-1.035) Urine Protein 1+ (Negative) Urine Ketones Negative (Negative) Urine Blood Negative /uL (Negative) Urine Nitrite Negative (Negative) Urine Bilirubin Negative (Negative) Urine Urobilinogen 4 mg/dL (Negative) Urine Leukocyte Esterase 2+ /uL (Negative) Urine RBC 3 /hpf (0 - 4) Urine Microscopic WBC < 1 /HPF (0-5) Urine Squamous Epithelial Cells Few /hpf (<5) Urine Bacteria Few /hpf (None Seen) Urine Mucus Few (None Seen) Urine Creatinine 120.82 mg/dL (30.0-125.0) Urine Protein/Creatinine Ratio 0.39 Urine Glucose Normal mg/dL (Normal) Urine Total Protein 47.6 mg/dL (1-14) Urine Opiates Screen Neg (NEGATIVE) Urine Fentanyl Screen Neg (NEGATIVE) Urine Barbiturates Screen Neg (NEGATIVE) Urine Phencyclidine Screen Neg (NEGATIVE) Urine Amphetamines Screen Neg (NEGATIVE) Urine Benzodiazepines Screen Neg (NEGATIVE) Urine Cocaine Screen Neg (NEGATIVE) Urine Cannabinoids Screen Pos (NEGATIVE) White Blood Count 10.2 10^3/uL (4.4-10.8) Red Blood Count 4.00 10^6/uL (4.0-5.20) Hemoglobin 9.5 g/dL (12.2-16.2) Hematocrit 29.2 % (36.0-46.0) Mean Corpuscular Volume 73.1 fL (80.0-100.0) Mean Corpuscular Hemoglobin 23.8 pg (28.0-32.0) Mean Corpuscular Hemoglobin Concent 32.6 g/dL (32.0-36.0) Red Cell Distribution Width 15.7 % (11.8-14.3) Platelet Count 234 10^3/uL (140-450) Mean Platelet Volume 7.5 fL (6.9-10.8) Neutrophils (%) (Auto) 76.5 % (37.0-80.0) Lymphocytes (%) (Auto) 17.2 % (10.0-50.0) Monocytes (%) (Auto) 5.5 % (0.0-12.0) Eosinophils (%) (Auto) 0.6 % (0.0-7.0) Basophils (%) (Auto) 0.2 % (0.0-2.0) Neutrophils # (Auto) 7.8 10 ^3/uL (1.6-8.6) Lymphocytes # (Auto) 1.8 10 ^3/uL (0.4-5.4) Monocytes # (Auto) 0.6 10 ^3/uL (0-1.3) Eosinophils # (Auto) 0.1 10 ^3/uL (0-0.8) Basophils # (Auto) 0 10 ^3/uL (0-0.2) Nucleated Red Blood Cells 0.0 % Prothrombin Time 10.0 sec (9.3-11.8) Prothrombin Time INR 0.94 (0.9-1.15) Activated Partial Thromboplast Time 30.8 SEC (24.5-34.5) Sodium Level 140 mmol/L (136-145) Potassium Level 3.4 mmol/L (3.5-5.1) Chloride Level 107 mmol/L (98-107) Carbon Dioxide Level 24 mmol/L (20-31) Anion Gap 9 (5-15) Blood Urea Nitrogen < 5 mg/dL (9-23) Creatinine 0.60 mg/dL (0.550-1.02) Glomerular Filtration Rate Calc 126 mL/min (>90) BUN/Creatinine Ratio 8.3 (10.0-20.0) Serum Glucose 72 mg/dL (74-106) Uric Acid 3.9 mg/dL (3.1-7.8) Calcium Level 9.3 mg/dL (8.7-10.4) Total Bilirubin 0.5 mg/dL (0.2-1.0) Aspartate Amino Transferase (AST) 22 U/L (13-40) Alanine Aminotransferase (ALT) 13 U/L (7-40) Alkaline Phosphatase 135 U/L (46-116) Total Protein 6.1 g/dL (5.7-8.2) Albumin 3.7 g/dL (3.2-4.8) Other Laboratory Tests 10/12/24 16:11 Brief Hx & Hospital Course: nst bpp Consults/Reason for consult none Operations or Procedures none Condition at Discharge: Good Final Diagnosis/Problems List 37 wks PIH Discharge Disposition: Home SNF Discharge Will this Physician continue t: No Discharge Instruct/Medications Diet: Regular Activity: No Restrictions, As Tolerated Activity comment: pelvic rest kick counts labor precautions Follow Up/Referral: as scheduled Discharge Statement: "Patient was advised to return to the ER or call 911 if any headaches, dizziness, shortness of breath, chest pain, abdominal pain, bleeding, fevers, or worsening of medical condition. Patient was counseled about treatment plan, medications, possible side effects, patientverbalized understanding. All questions were answered to the best of my ability. This discharge took greater then 30 minutes in planning, reviewing documentation, counseling the patient, and discussing with other team members." ASSESSMENT ASSESSMENT Assessment Visit Coding OBGYN Date of Service: Oct 12, 2024 Billing Provider: CAMDEN GUZMAN DO MANAGER TRANSPLANT Common Visit Codes: 52955-TLO/OBS SAME DATE (LOW), 99909-CBK/OBS SAME DATE (MOD), 22924-UXA/OBS SAME DATE (HIGH) MANAGER TRANSPLANT Procedure Codes: 86543-54- NON-STRESS TEST, 70416-ESVZ W/ CARE CAMDEN GUZMAN DO Oct 13, 2024 00:22
[2024-10-13] MEDS ORDERED: TERC0.4C2 VG ×2 (04:18)
== END 2024-10-12 18:10 | disposition home or self-care (01) ==
LOC: LDRP 15:23
PROVIDERS: ADMIT Obstetrics & Gynecology; ATTEND Obstetrics & Gynecology
DX: O13.3 Gestational [pregnancy-induced] hypertension without significant proteinuria, third trimester (principal); Z98.890 Other specified postprocedural states; Z79.899 Other long term (current) drug therapy; Z3A.37 37 weeks gestation of pregnancy
CPT/HCPCS: 36415; 59025; 80053; 80307; 81001; 81002; 82570; 84156; 84550; 85025; 85610; 85730; 94760; G0378

== ENCOUNTER 2024-10-13 03:01 | Observation (INO) | payer MEDICAID, OTHER ==
[~2024-10-13] VITALS: Ht 160 cm; Wt 98.4 kg
[2024-10-13] MEDS ORDERED: TERC0.4C2 VG ×2 (04:18)
--- NOTE | 2024-10-13 05:46 | DVHDS2 ---
Discharge Summary Date of Admission Oct 13, 2024 at 03:01 Date of Discharge: Oct 13, 2024 Admitting Diagnosis vaginal spotting active monilial infection on meds Brief Hx & Hospital Course: Here 37 weeks small amt spotting active monilial vaginitis Consults/Reason for consult none Operations or Procedures none Condition at Discharge: Good Final Diagnosis/Problems List Vaginal spotting active monilial vaginitis no bleeding observed Discharge Disposition: Home SNF Discharge Will this Physician continue t: No Discharge Instruct/Medications Diet: Regular Activity: Light activity (pelvic rest 2 weeks , kick counts labor precautions, bleeding precautions) Follow Up/Referral: [facility] your [facility] up appointment on 10/14/24 at 8am for NST/BPP and 24hr urine collection. Medications: Continue home meds. Discharge Statement: "Patient was advised to return to the ER or call 911 if any headaches, dizziness, shortness of breath, chest pain, abdominal pain, bleeding, fevers, or worsening of medical condition. Patient was counseled about treatment plan, medications, possible side effects, patientverbalized understanding. All questions were answered to the best of my ability. This discharge took greater then 30 minutes in planning, reviewing documentation, counseling the patient, and discussing with other team members." ASSESSMENT ASSESSMENT Assessment Vaginal spotting Visit Coding OBGYN Date of Service: Oct 13, 2024 Billing Provider: CAMDEN GUZMAN DO TRAVELING ENGINEER Common Visit Codes: 68032-EOE/OBS SAME DATE (LOW), 71037-OZA/OBS SAME DATE (MOD), 03593-BVK/OBS SAME DATE (HIGH) TRAVELING ENGINEER Procedure Codes: 43183-41- NON-STRESS TEST CAMDEN GUZMAN DO Oct 13, 2024 05:46
== END 2024-10-13 04:40 | disposition home or self-care (01) ==
LOC: LDRP 03:01
PROVIDERS: ADMIT Obstetrics & Gynecology; ATTEND Obstetrics & Gynecology
DX: O26.853 Spotting complicating pregnancy, third trimester (principal); O13.3 Gestational [pregnancy-induced] hypertension without significant proteinuria, third trimester; O15.03 Eclampsia complicating pregnancy, third trimester; B37.31 Acute candidiasis of vulva and vagina; Z98.890 Other specified postprocedural states; Z79.899 Other long term (current) drug therapy; Z3A.37 37 weeks gestation of pregnancy
CPT/HCPCS: 59025; 81002; 94760; G0378

== ENCOUNTER 2024-10-14 06:37 | Observation (INO) | payer MEDICAID, OTHER ==
[~2024-10-14 06:37] MED LIST changes: +TERC0.4C2 VG
[2024-10-14 08:36] LABS: Protein, Urine 81.4 mg/dL (1-14)
[2024-10-14 08:36] LABS: Protein, Urine 21.4 mg/dL (1-14)
[2024-10-14 08:39] LABS: Creatinine, Urine 163.94 mg/dL (30.0-125.0); Urine Protein/Creatinine Ratio 0.5
[2024-10-14 08:39] LABS: 24 Hr. Total Protein, Urine 385.2 mg/24 Hr (<149.1)
--- NOTE | 2024-10-14 08:40 | DVH ---
BIOPHYSICAL PROFILE HISTORY: PIH TECHNIQUE: Multiple transabdominal real-time grayscale sonographic images through the gravid uterus of the fetus with duplex Doppler color flow and M-mode spectral analysis FINDINGS: BIOPHYSICAL PROFILE: breathing score: 2 movement score: 2 tone score: 2 Quantitative VINEET score: 2 (VINEET: 17.1 Cm.) Total score: 8 Single live fetus in cephalic presentation. heart rate 140 beats per minute. Posterior placenta without previa or abruption IMPRESSION: Biophysical profile score: 8
[2024-10-14 09:31] LABS: Urine Bacteria FEW /hpf (None Seen); Urine Blood Negative /uL (Negative); Urine Clarity Turbid (Clear); Urine Color Yellow (Yellow); Urine Hyaline Cast FEW /lpf (0 - 2); Urine Protein, UAD 1+ (Negative); Urine Specific Gravity 1.015 (1.001-1.035); Urine Squamous Epithelial Cell MOD /hpf (<5); Urine Urobilinogen 4 mg/dL (Negative); Urine WBC 9 /HPF (0-5); Urine pH 7.5 (5.0-9.0)
--- NOTE | 2024-10-14 11:54 | DVHDS2 ---
Physician Discharge Progress N Final Diagnosis: Term IUP gestational HTN vs Mild Pre Eclampsia Operations or Procedures: Operations or Procedures NST/BPP/ VINEET all reassuring BPs normal, asymptomatic 24h urine prot 385 mg/ (abnormal) Condition on Discharge: Stable Disposition: Home Discharge Instructions: Diet: Regular Activity: No Restrictions, As Tolerated Follow Up/Referral: See Dr. Ortiz this week, recommend induction of labor early Term RTC to [facility]place sooner if labor, or symptoms of HTN Medications: N/A Follow Up Care: Discharge Statement: "Patient was advised to return to the ER or call 911 if any headaches, dizzine ss, shortness of breath, chest pain, abdominal pain, bleeding, fevers, or worsening of medical condition. Patient was counseled about treatment plan, medications, possible side effects, patientverbalized understanding. All questions were answered to the best of my ability. This discharge took greater then 30 minutes in planning, reviewing documentation, counseling the patient, and discussing with other team members." Visit Coding OBGYN Date of Service: Oct 14, 2024 Billing Provider: SONIDO ROONEY DO CRYPTOLOGIC TECHNICIAN OPERATOR/ANALYST Common Visit Codes: 56625-KJS/OBS SAME DATE (HIGH) CRYPTOLOGIC TECHNICIAN OPERATOR/ANALYST Procedure Codes: 33646-39- NON-STRESS TEST SONIDO ROONEY DO Oct 14, 2024 11:54
== END 2024-10-14 09:59 | disposition home or self-care (01) ==
LOC: LDRP 07:50
PROVIDERS: ADMIT Obstetrics & Gynecology; ATTEND Obstetrics & Gynecology
DX: O13.3 Gestational [pregnancy-induced] hypertension without significant proteinuria, third trimester (principal); O99.333 Smoking (tobacco) complicating pregnancy, third trimester; F17.210 Nicotine dependence, cigarettes, uncomplicated; Z3A.37 37 weeks gestation of pregnancy; Z88.6 Allergy status to analgesic agent; Z91.018 Allergy to other foods; Z79.899 Other long term (current) drug therapy
CPT/HCPCS: 59025; 76819; 81001; 81002; 82570; 84156; G0378

== ENCOUNTER 2024-10-17 08:15 | Observation (INO) | payer OTHER, MEDICAID ==
[~2024-10-17 08:15] MED LIST changes: -CEPH500C PO; -CLOT2CRE5 VA; -FERR30CA PO; -MET075VC VG
--- NOTE | 2024-10-17 09:27 | DVH ---
Procedure: US BIOPHYSICAL PROFILE 10/17/2024 08:50 AM Indication: PIH Comparison: US BIOPHYSICAL PROFILE on DOS: 10/14/24, US BIOPHYSICAL PROFILE on DOS: 10/11/24, US BIOPHYS ICAL PROFILE on DOS: 10/04/24 Technique: Sonogram of gravid uterus utilizing grayscale and color techniques. FINDINGS: Single living intrauterine gestation. Presentation: Cephalic Placenta: Posterior heart rate: 155 bpm VINEET: 17.3 cm, DVP: 5.9 cm Maternal cervix: Not visualized Biophysical Profile: breathing score: 2 movement score: 2 tone: 2 Quantitative VINEET score: 2 Total score: 8/8 IMPRESSION: 1. Single living as above. 2. Biophysical profile score: 8/8.
[2024-10-17 10:14] LABS: Basophils # (auto) 0 10 ^3/uL (0-0.2); Basophils % (auto) 0.4 % (0.0-2.0); Eosinophils # (auto) 0.1 10 ^3/uL (0-0.8); Eosinophils % (auto) 0.5 % (0.0-7.0); Hematocrit 30.3 % (36.0-46.0); Hemoglobin 9.9 g/dL (12.2-16.2); Lymphocytes # (auto) 1.9 10 ^3/uL (0.4-5.4); Lymphocytes % (auto) 16.8 % (10.0-50.0); Mean Corpuscular Hemoglobin 23.7 pg (28.0-32.0); Mean Corpuscular Hgb Conc. 32.6 g/dL (32.0-36.0); Mean Corpuscular Volume 72.6 fL (80.0-100.0); Monocytes # (auto) 0.6 10 ^3/uL (0-1.3); Monocytes % (auto) 5.4 % (0.0-12.0); Neutrophils # (auto) 8.6 10 ^3/uL (1.6-8.6); Neutrophils % (auto) 76.9 % (37.0-80.0); Platelet Count (auto) 247 10^3/uL (140-450); Red Blood Cells 4.18 10^6/uL (4.0-5.20); Red Cell Distribution Width 15.7 % (11.8-14.3); White Blood Cell 11.2 10^3/uL (4.4-10.8)
[2024-10-17 10:21] LABS: Urine Bacteria FEW /hpf (None Seen); Urine Blood Negative /uL (Negative); Urine Clarity Turbid (Clear); Urine Color Light-Orange (Yellow); Urine Mucus FEW (None Seen); Urine Protein, UAD TRACE (Negative); Urine Specific Gravity 1.014 (1.001-1.035); Urine Squamous Epithelial Cell MOD /hpf (<5); Urine Urobilinogen 2 mg/dL (Negative); Urine WBC 2 /HPF (0-5); Urine pH 8.5 (5.0-9.0)
[2024-10-17 10:31] LABS: Protein, Urine 35.9 mg/dL (1-14)
[2024-10-17 10:32] LABS: Amphetamine Screen, Urine Neg (NEGATIVE); Barbiturate Scree,Urine Neg (NEGATIVE); Benzodiazephine Screen, Urine Neg (NEGATIVE); Cocaine Screen, Urine Neg (NEGATIVE); Creatinine, Urine 114.54 mg/dL (30.0-125.0); Urine Protein/Creatinine Ratio 0.31
[2024-10-17 10:33] LABS: Cannabinoid Screen, Urine Pos (NEGATIVE); Opiate Scree,Urine Neg (NEGATIVE); Phencyclidine Screen, Urine Neg (NEGATIVE)
[2024-10-17 10:34] LABS: Alanine Aminotransferase 15 U/L (7-40); Anion Gap 9 (5-15); Aspartate Aminotransferase 17 U/L (13-40); Bilirubin, Total 0.5 mg/dL (0.2-1.0); Calcium 9.4 mg/dL (8.7-10.4); Carbon Dioxide 25 mmol/L (20-31); Chloride 105 mmol/L (98-107); Sodium 139 mmol/L (136-145); Total Protein 6.7 g/dL (5.7-8.2)
[2024-10-17 11:00] LABS: Alkaline Phosphatase 154 U/L (46-116); BUN/Creatinine Ratio 7.2 (10.0-20.0); Blood Urea Nitrogen < 5 mg/dL (9-23); Glucose 72 mg/dL (74-106); Potassium 3.3 mmol/L (3.5-5.1)
[2024-10-17 11:16] LABS: INR 0.95 (0.9-1.15); Prothrombin Time 10.1 sec (9.3-11.8)
--- NOTE | 2024-10-17 19:48 | DVHDS2 ---
Physician Discharge Progress N Final Diagnosis: PIH ruled out,drug use in preg 37wks Operations or Procedures: Operations or Procedures nst37 wks,sono Consultations: Consultations pt advised to stop smoking thc Condition on Discharge: Good Disposition: Home Discharge Instructions: Diet: Cardiac 2g Na,low cholest Activity: No Restrictions, As Tolerated Follow Up/Referral: Return Saturday10/23/24 for Induction of Labor at 10:00pm Medications: na Follow Up Care: Specialist: fu ,and saturday for induction Discharge Statement: "Patient was advised to return to the ER or call 911 if any headaches, dizziness, shortness of breath, chest pain, abdominal pain, bleeding, fevers, or worsening of medical condition. Patient was counseled about treatment plan, medications, possible side effects, patientverbalized understanding. All questions were answered to the best of my ability. This discharge took greater then 30 minutes in planning, reviewing documenta tion, counseling the patient, and discussing with other team members." Visit Coding OBGYN Date of Service: Oct 17, 2024 Billing Provider: JESSICA ANDERSON DO TECHNICAL MAINTENANCE SPECIALIST Common Visit Codes: 33260-[id number] INP/OBS CARE(HIGH) TECHNICAL MAINTENANCE SPECIALIST Procedure Codes: 14819-86- NON-STRESS TEST JESSICA ANDERSON DO Oct 17, 2024 19:48
== END 2024-10-17 11:57 | disposition home or self-care (01) ==
LOC: LDRP 08:15
PROVIDERS: ADMIT Obstetrics & Gynecology; ATTEND Obstetrics & Gynecology
DX: O13.3 Gestational [pregnancy-induced] hypertension without significant proteinuria, third trimester (principal); Z98.890 Other specified postprocedural states; Z79.899 Other long term (current) drug therapy; Z3A.37 37 weeks gestation of pregnancy
CPT/HCPCS: 36415; 76819; 80053; 80307; 81001; 81002; 82570; 84156; 84550; 85025; 85610; 85730; G0378

== ENCOUNTER 2024-10-20 19:45 | Inpatient (IN) | payer OTHER, MEDICAID ==
[~2024-10-20] VITALS: Ht 160 cm; Wt 98.9 kg
[2024-10-20] MEDS ORDERED: LIDOCAINE 2%HCL (LOCAL ANESTH.) INJ 20ML MDV IJ PRN ×2 (20:15→21:00)
[2024-10-20] MEDS ORDERED: hydrALAZINE HCL 20 MG/ML VL IV PRN (20:15)
[2024-10-20 20:56] LABS: Basophils # (auto) 0 10 ^3/uL (0-0.2); Basophils % (auto) 0.3 % (0.0-2.0); Eosinophils # (auto) 0.1 10 ^3/uL (0-0.8); Eosinophils % (auto) 0.8 % (0.0-7.0); Mean Corpuscular Volume 71.5 fL (80.0-100.0); Neutrophils # (auto) 8.5 10 ^3/uL (1.6-8.6)
[2024-10-20 20:58] LABS: Hematocrit 27.2 % (36.0-46.0); Lymphocytes # (auto) 2.1 10 ^3/uL (0.4-5.4); Lymphocytes % (auto) 18.2 % (10.0-50.0); Mean Corpuscular Hemoglobin 23.6 pg (28.0-32.0); Monocytes # (auto) 0.9 10 ^3/uL (0-1.3); Monocytes % (auto) 7.4 % (0.0-12.0); Neutrophils % (auto) 73.3 % (37.0-80.0); Platelet Count (auto) 234 10^3/uL (140-450); Red Blood Cells 3.81 10^6/uL (4.0-5.20); Red Cell Distribution Width 15.7 % (11.8-14.3); White Blood Cell 11.7 10^3/uL (4.4-10.8)
[2024-10-20] MEDS ORDERED: LACTATED RINGER'S 1,000 ML IV SCH (21:00)
[2024-10-20] MEDS ORDERED: NALBUPHINE HCL 10 MG/1ml INJECTION IV PRN (21:00)
[2024-10-20 21:13] LABS: Alanine Aminotransferase 12 U/L (7-40); Calcium 9.7 mg/dL (8.7-10.4); Carbon Dioxide 25 mmol/L (20-31)
[2024-10-20 21:14] LABS: Albumin 3.7 g/dL (3.2-4.8); Anion Gap 6 (5-15); BUN/Creatinine Ratio 9.7 (10.0-20.0); Bilirubin, Total 0.3 mg/dL (0.2-1.0); Glucose 74 mg/dL (74-106); Sodium 140 mmol/L (136-145); Total Protein 6.1 g/dL (5.7-8.2); Uric Acid 4.1 mg/dL (3.1-7.8)
[2024-10-20 21:16] LABS: Alkaline Phosphatase 143 U/L (46-116); Aspartate Aminotransferase 13 U/L (13-40); Blood Urea Nitrogen 6 mg/dL (9-23); Chloride 109 mmol/L (98-107); INR 0.95 (0.9-1.15); Partial Thromboplastin Time 29.9 SEC (24.5-34.5); Potassium 3.4 mmol/L (3.5-5.1); Prothrombin Time 10.1 sec (9.3-11.8)
[2024-10-20 21:18] LABS: Urine Amorphous Crystal FEW /hpf (None Seen); Urine Bacteria FEW /hpf (None Seen); Urine Blood Negative /uL (Negative); Urine Clarity Turbid (Clear); Urine Color Light-Orange (Yellow); Urine Mucus FEW (None Seen); Urine Protein, UAD TRACE (Negative); Urine Specific Gravity 1.013 (1.001-1.035); Urine Squamous Epithelial Cell FEW /hpf (<5); Urine Urobilinogen Normal (Negative); Urine WBC 3 /HPF (0-5)
[2024-10-20 21:25] LABS: Protein, Urine 27.4 mg/dL (1-14)
[2024-10-20 21:26] LABS: Cannabinoid Screen, Urine Pos (NEGATIVE)
[2024-10-20 21:28] LABS: Creatinine, Urine 104.28 mg/dL (30.0-125.0); Urine Protein/Creatinine Ratio 0.26
[2024-10-20 21:32] LABS: Amphetamine Screen, Urine Neg (NEGATIVE); Barbiturate Scree,Urine Neg (NEGATIVE); Benzodiazephine Screen, Urine Neg (NEGATIVE); Cocaine Screen, Urine Neg (NEGATIVE); Opiate Scree,Urine Neg (NEGATIVE); Phencyclidine Screen, Urine Neg (NEGATIVE)
[2024-10-20] MEDS: FAMOTIDINE 20 MG TAB PO SCH (23:42)
--- NOTE | 2024-10-20 23:42 | DVHHP2 ---
OB CC & HPI Date Date of Admission: Oct 20, 2024 Patient Identification: : 7 Para: 2 EDC: Oct 20, 2024 EGA: 38.1wks Chief Complaints: Reason for admission: induction of labor History of Present Complaints 28yo IUP@38.1wks presents to L&D for Induction of Labor for Pre- eclampsia. Denies UCs/LOF/VB/HENSON/vision changes/RUQ pain. Endorses +FM. PNC: Routine PNC at [facility] with Dr Ortiz, adequate visits, PNC complicated by Pre-eclampsia, THC use, and iron deficiency anemia. GTT wnl, dating based on LMP c/w 8wk sono per pt, GBS negative. OB hx: uncomplicated 2021, from heart defect at 1 week old uncomplicated 2022 SAB x4 Past Medical History Cardiac: No pertinent Hx Pulmonary: Asthma Central Nervous System: No pertinent Hx GI: No pertinent Hx Hemotology/Oncology: No pertinent Hx Hepatobiliary: No pertinent Hx Psychiatric: Anxiety, Bipolar, Other (PTSD) Musculoskeletal: Other (tailbone pain during all pregnancies) Rheumotologic: No pertinent Hx Infectious Disease: No peritnent Hx ENT: No pertinent Hx Renal/: No pertinent Hx Endocrine: No pertinent Hx Dermatology: No pertinent Hx Others Ovarian cyst Past Surgical History: Other (ovarian cyst removed from left ovary in 2017) OB History OB History Care: Good Care Obstetrical Complications: Pre-eclampsia Medical Complications: None Allergies: Coded Allergies: Aspirin (Verified Allergy, Severe, 10/13/24) Coconut (Cocos Nucifera) (Verified Allergy, Severe, 10/13/24) Cranberry Extract (Verified Allergy, Severe, 10/13/24) Home Meds Active Scripts Vit W/ Ferrous Fumara ( One Daily) Daily Tab, 1 TAB PO DAILY, #90 TAB 3 Refills Prov:GHULAMKATIE SHILPA 05/15/23 Reported Medications Terconazole (Terconazole) 0.4 % Cre, 1 APPLIC VG QPM, #45 GRAMS 10/13/24 Lidocaine (Lidocaine Patch 5%) 5 % Pad, 5 % EX BIDP PRN for PAIN SCALE 1 THRU 6, PAD 10/04/24 Home Meds PNV, Famotidine, Lidocaine patches Current Medications Current Medications Medications (Trade) Dose Ordered Sig/Vera Route PRN Reason Start Time Stop Time Status Last Admin Lactated Ringer's 1,000 ml @ 125 mls/hr Q8H IV 10/20/24 20:15 Witch Consuelo (Tucks) 1 pad PRN PRN TOP PERINEAL AREA DISCOMFORT 10/20/24 20:15 Sodium Lauryl Sulfate (Phisoderm) 240 ml PRN PRN TOP PERINEAL AREA DISCOMFORT 10/20/24 20:15 Benzocaine (Dermoplast) 1 applic PRN PRN TOP PERINEAL AREA DISCOMFORT 10/20/24 20:15 Misoprostol (Cytotec) 50 mcg Q4HPRN PRN PO CERVICAL RIPENING 10/20/24 22:00 Lidocaine HCl (Xylocaine) 40 ml ONCE PRN IJ PERINEAL AREA DISCOMFORT 10/20/24 20:15 Hydralazine HCl (Apresoline Injection) 5 mg Q20MP PRN IV SBP>160 or DBP>105 10/20/24 20:15 Lactated Ringer's 1,000 ml @ 125 mls/hr Q8H IV 10/20/24 21:00 Cancel Nalbuphine HCl (Nubain) 10 mg Q4HP PRN IV MODERATE PAIN (4-6 PAIN SCALE) 10/20/24 21:00 Lidocaine HCl (Xylocaine) 20 ml ONCE PRN IJ PERINEAL AREA DISCOMFORT 10/20/24 21:00 Cancel Ondansetron HCl (Zofran) 4 mg Q4HPRN PRN IV NAUSEA / VOMITING 10/20/24 21:00 Famotidine (Pepcid Tablet) 40 mg Q12HR PO 10/21/24 22:00 UNV Family & Social History Family/Social History Past Family/Social History: Mother: hx of Pre-Eclampsia, DM2, hypercholesterolemia Father: HTN, DM2, Asthma Blood Type: B+ Rubella: immune RPR/VDRL: Negative GBS Status: Negative HBsAG: Negative Review of Systems Constitutional: No symptom reported Ears, Nose, & Throat: No symptom reported Eyes: No symptom reported Pulmonary/Respiratory: No symptom reported Cardiovascular: No symptom reported Gastrointestinal: No symptom reported Genitourinary: No symptom reported Musculoskeletal: Other (tailbone pain) Skin: No symptom reported Psychiatric: No symptom reported Endocrine: No symptom reported Hemotologic/Lymphatic: No symptom reported OB Admission Exam Physical Exam Vitals: VSS, see chart HEENT: TMs Normal, Fontanelles Normal, Nasal Mucosa Normal, Eyes non-injected, Oropharynx Normal, PERRLA, Moist Membranes, EOMI Heart: Rhythm Normal Lungs: Clear Abdomen: Gravid Extremities: Normal Reflexes: Normal Pelvic Exam: SVE done by RN 1/thick/-2 Membranes: Intact Heart Rate: 150's Accelerations: Accelerations Present Decelerations: No Decelerations Dry Starch Supervisor Variability: Average (6-25) Contractions on Admission: 6-10 Minutes Apart Intensity: Mild OB Plan Plan Admitting Diagnosis: e28yo IUP@38.1wks Induction of Labor for Pre-Eclampsia THC use Iron deficiency anemia Asthma Category I EFM Intact Membranes GBS negative Plan: Induction Induction Methd: Misoprostol protocol Other Plan: Admit to L&D Informed consent obtained Discussed risks, benefits, alternatives of IOL for Pre-Eclampsia with pt. Pt consents to IOL with cytotec. Continuous monitoring per order Routine labs and PIH labs ordered 2units PRBC on hold ordered Pain mgmt PRN Frequent position changes in and out of bed encouraged Limit SVE unless necessary Intrauterine resuscitation PRN Anticipate CNM co-managing with Dr Ortiz, who is managing the preeclampsia. RN to call Dr. Ortiz for hypertension. Visit Coding OBGYN Date of Service: Oct 20, 2024 Billing Provider: KATIE PARMAR CNM SPONGE MAKER Common Visit Codes: [id number] INP/OBS CARE (HIGH) SPONGE MAKER Procedure Codes: 18412-17- NON-STRESS TEST ALTHEA LOCKHART STUDENTMDW Oct 20, 2024 23:42
[2024-10-20] MEDS: POTASSIUM CHL 20 Meq TABLET PO ONE (23:43)
[2024-10-20] MEDS: ONDANSETRON HCL 4 MG/2 ML VIAL IV PRN (23:43)
[2024-10-20] MEDS: PHISODERM TOP SOLN 240ML BTL TOP PRN (23:45)
[2024-10-20] MEDS: WITCH HAZEL-GLYCERIN PAD TOP PRN (23:45)
[2024-10-20] MEDS: DERMOPLAST 60ML BOTTLE TOP PRN (23:45)
[2024-10-21] MEDS: LACTATED RINGER'S 1,000 ML IV SCH (00:04)
[2024-10-21] MEDS: miSOPROStol 50 MCG per PRE-CUT 1/2 TAB PO PRN (01:00)
--- NOTE | 2024-10-21 06:07 | DVHPN2 ---
Chief Complaints Patient reports: No new complaints Nursing reports: No new complaints Objective Medications Current Medications Medications (Trade) Dose Ordered Sig/Vera Route PRN Reason Start Time Stop Time Status Last Admin Benzocaine (Dermoplast) 1 applic PRN PRN TOP PERINEAL AREA DISCOMFORT 10/20/24 20:15 10/20/24 23:45 Famotidine (Pepcid Injection) 40 mg Q12HR IV 10/21/24 10:00 Hydralazine HCl (Apresoline Injection) 5 mg Q20MP PRN IV SBP>160 or DBP>105 10/20/24 20:15 Lactated Ringer's 1,000 ml @ 125 mls/hr Q8H IV 10/20/24 20:15 10/21/24 05:00 Lactated Ringer's 1,000 ml @ 125 mls/hr Q8H IV 10/20/24 21:00 Cancel Lidocaine HCl (Xylocaine) 20 ml ONCE PRN IJ PERINEAL AREA DISCOMFORT 10/20/24 21:00 Cancel Lidocaine HCl (Xylocaine) 40 ml ONCE PRN IJ PERINEAL AREA DISCOMFORT 10/20/24 20:15 Misoprostol (Cytotec) 50 mcg Q4HPRN PRN PO CERVICAL RIPENING 10/20/24 22:00 10/21/24 05:00 Nalbuphine HCl (Nubain) 10 mg Q4HP PRN IV MODERATE PAIN (4-6 PAIN SCALE) 10/20/24 21:00 Ondansetron HCl (Zofran) 4 mg Q4HPRN PRN IV NAUSEA / VOMITING 10/20/24 21:00 10/20/24 23:43 Sodium Lauryl Sulfate (Phisoderm) 240 ml PRN PRN TOP PERINEAL AREA DISCOMFORT 10/20/24 20:15 10/20/24 23:45 Witch Consuelo (Tucks) 1 pad PRN PRN TOP PERINEAL AREA DISCOMFORT 10/20/24 20:15 10/20/24 23:45 Others VE- UNCHANGED Studies Laboratory Tests 10/20/24 20:36 Test 10/20/24 20:36 Range/Units Serum Glucose 74 74-106 mg/dL Ass/Plan Assessment INDUCTION OF LABOR Plan REC ONE CYTOTEC SUPPORTIVE CARE Visit Coding OBGYN Date of Service: Oct 21, 2024 Billing Provider: ZAND,JESSICA DO CHILD GUIDANCE COUNSELOR Common Visit Codes: 81066-GSR/OBS DISCH DAY >30MIN CHILD GUIDANCE COUNSELOR Procedure Codes: 57042-91- NON-STRESS TEST JESSICA ANDERSON DO Oct 21, 2024 06:07
--- NOTE | 2024-10-21 09:03 | DVHPN2 ---
Chief Complaints Patient reports: No new complaints Nursing reports: No new complaints Objective Medications Current Medications Medications (Trade) Dose Ordered Sig/Vera Route PRN Reason Start Time Stop Time Status Last Admin Benzocaine (Dermoplast) 1 applic PRN PRN TOP PERINEAL AREA DISCOMFORT 10/20/24 20:15 10/20/24 23:45 Famotidine (Pepcid Injection) 40 mg Q12HR IV 10/21/24 10:00 Hydralazine HCl (Apresoline Injection) 5 mg Q20MP PRN IV SBP>160 or DBP>105 10/20/24 20:15 Lactated Ringer's 1,000 ml @ 125 mls/hr Q8H IV 10/20/24 20:15 10/21/24 05:00 Lactated Ringer's 1,000 ml @ 125 mls/hr Q8H IV 10/20/24 21:00 Cancel Lidocaine HCl (Xylocaine) 20 ml ONCE PRN IJ PERINEAL AREA DISCOMFORT 10/20/24 21:00 Cancel Lidocaine HCl (Xylocaine) 40 ml ONCE PRN IJ PERINEAL AREA DISCOMFORT 10/20/24 20:15 Misoprostol (Cytotec) 50 mcg Q4HPRN PRN PO CERVICAL RIPENING 10/20/24 22:00 10/21/24 05:00 Nalbuphine HCl (Nubain) 10 mg Q4HP PRN IV MODERATE PAIN (4-6 PAIN SCALE) 10/20/24 21:00 Ondansetron HCl (Zofran) 4 mg Q4HPRN PRN IV NAUSEA / VOMITING 10/20/24 21:00 10/20/24 23:43 Sodium Lauryl Sulfate (Phisoderm) 240 ml PRN PRN TOP PERINEAL AREA DISCOMFORT 10/20/24 20:15 10/20/24 23:45 Witch Consuelo (Tucks) 1 pad PRN PRN TOP PERINEAL AREA DISCOMFORT 10/20/24 20:15 10/20/24 23:45 Others ve-1-2 /thick/high Studies Laboratory Tests 10/20/24 20:36 Test 10/20/24 20:36 Range/Units Serum Glucose 74 74-106 mg/dL Ass/Plan Assessment INDUCTION OF LABOR Plan give 2nd cytotec supportive care Visit Coding OBGYN Date of Service: Oct 21, 2024 Billing Provider: JESSICA ANDERSON DO THUMB SEWER Common Visit Codes: 96437-HNF/OBS SAME DATE (HIGH) THUMB SEWER Procedure Codes: 60875-16- NON-STRESS TEST JESSICA ANDERSON DO Oct 21, 2024 09:03
[2024-10-21] MEDS: FAMOTIDINE (10MG/ML) 2ML VL IV SCH (10:30)
--- NOTE | 2024-10-21 14:34 | DVHPN2 ---
Chief Complaints Patient reports: No new complaints Nursing reports: No new complaints Objective Medications Current Medications Medications (Trade) Dose Ordered Sig/Vera Route PRN Reason Start Time Stop Time Status Last Admin Benzocaine (Dermoplast) 1 applic PRN PRN TOP PERINEAL AREA DISCOMFORT 10/20/24 20:15 10/20/24 23:45 Famotidine (Pepcid Injection) 40 mg Q12HR IV 10/21/24 10:00 10/21/24 10:30 Hydralazine HCl (Apresoline Injection) 5 mg Q20MP PRN IV SBP>160 or DBP>105 10/20/24 20:15 Lactated Ringer's 1,000 ml @ 125 mls/hr Q8H IV 10/20/24 20:15 10/21/24 05:00 Lactated Ringer's 1,000 ml @ 125 mls/hr Q8H IV 10/20/24 21:00 Cancel Lidocaine HCl (Xylocaine) 20 ml ONCE PRN IJ PERINEAL AREA DISCOMFORT 10/20/24 21:00 Cancel Lidocaine HCl (Xylocaine) 40 ml ONCE PRN IJ PERINEAL AREA DISCOMFORT 10/20/24 20:15 Misoprostol (Cytotec) 50 mcg Q4HPRN PRN PO CERVICAL RIPENING 10/20/24 22:00 10/21/24 13:02 Nalbuphine HCl (Nubain) 10 mg Q4HP PRN IV MODERATE PAIN (4-6 PAIN SCALE) 10/20/24 21:00 Ondansetron HCl (Zofran) 4 mg Q4HPRN PRN IV NAUSEA / VOMITING 10/20/24 21:00 10/20/24 23:43 Sodium Lauryl Sulfate (Phisoderm) 240 ml PRN PRN TOP PERINEAL AREA DISCOMFORT 10/20/24 20:15 10/20/24 23:45 Witch Consuelo (Tucks) 1 pad PRN PRN TOP PERINEAL AREA DISCOMFORT 10/20/24 20:15 10/20/24 23:45 Others VE-2CM/HIGH/THICK Studies Laboratory Tests 10/20/24 20:36 Test 10/20/24 20:36 Range/Units Serum Glucose 74 74-106 mg/dL Ass/Plan Assessment INDUCTION OF LABOR Plan RECIEVED 3 CYTOTE Visit Coding OBGYN Date of Service: Oct 21, 2024 Billing Provider: JESSICA ANDERSON DO BUSINESS ECONOMIST Common Visit Codes: [id number] INP/OBS CARE (HIGH) BUSINESS ECONOMIST Procedure Codes: 99963-56- NON-STRESS TEST JESSICA ANDERSON DO Oct 21, 2024 14:34
[2024-10-21] MEDS: ePHEDrine SULFATE 50 MG/ML AMP IV ONE ×2 (15:00→17:15)
[2024-10-21] MEDS: NALOXONE HCL 0.4 MG/ML VIAL IV ONE ×2 (15:00→17:15)
[2024-10-21] MEDS: fentaNYL CITRATE 100 MCG/2 ML VL IV ONE ×2 (15:00→17:15)
[2024-10-21] MEDS ORDERED: ROPIVACAINE HCL 200 ML EPI SCH (17:15)
[2024-10-21] MEDS ORDERED: SODIUM CHLORIDE 0.9% 500 ML IV PRN (17:15)
[2024-10-21] MEDS ORDERED: TERBUTALINE SULFATE 1 MG/ML 1ML VIAL SC PRN (17:30)
--- NOTE | 2024-10-21 17:52 | DVHPN2 ---
CNM Labor Progress Note Date and Time Seen Date Seen: Oct 21, 2024 Time Seen: 17:00 Subjective Patient reports: Feels better (post epidural) Subjective Comment Pt consents to Cook's CRB Objective Vital Signs VSS See lab results Monitoring Method Monitoring Method: External Heart Rate Heart Rate Baseline: 140 Heart Rate Variability: Moderate Presence of FHR Accelerations: Yes Presence of FHR Decelerations: No Changes in Trends of Patterns: No Are all 5 Components of the FH: Yes Contractions Contractions Frequency: Other (3-5) Duration of Contraction: 60 Contractions Intensity: Moderate Contractions Resting Tone: Relaxed Membranes Membranes: Intact Vaginal Exam Vag Exam Deferred: No (Cook's CRB inserted w/ 80/80 fluid) Vaginal Exam Dilation: 2 (inner cervical os:1) Vaginal Exam Effacement: 50 Vaginal Exam Station: -2 Vaginal Exam Presentation: VTX Vaginal Exam Show: Moderate Medications Medications - Pitocin: No Medication - Epidural: Yes Medication - Other 4 doses of misoprostol 50 mcg given Lab Results Lab Results Current Medications Medications (Trade) Dose Ordered Sig/Vera Start Time Stop Time Status Last Admin Dose Admin Lactated Ringer's 1,000 ml @ 125 mls/hr Q8H 10/20/24 20:15 10/21/24 18:48 125 MLS/HR Witch Consuelo (Tucks) 1 pad PRN PRN 10/20/24 20:15 10/20/24 23:45 1 PAD Sodium Lauryl Sulfate (Phisoderm) 240 ml PRN PRN 10/20/24 20:15 10/20/24 23:45 240 ML Benzocaine (Dermoplast) 1 applic PRN PRN 10/20/24 20:15 10/20/24 23:45 1 APPLIC Misoprostol (Cytotec) 50 mcg Q4HPRN PRN 10/20/24 22:00 10/21/24 13:02 50 MCG Lidocaine HCl (Xylocaine) 40 ml ONCE PRN 10/20/24 20:15 Hydralazine HCl (Apresoline Injection) 5 mg Q20MP PRN 10/20/24 20:15 Nalbuphine HCl (Nubain) 10 mg Q4HP PRN 10/20/24 21:00 Ondansetron HCl (Zofran) 4 mg Q4HPRN PRN 10/20/24 21:00 10/20/24 23:43 4 MG Potassium Chloride (Klor-Con Tablet) 40 meq ONCE ONCE 10/20/24 22:00 10/20/24 22:05 DC 10/20/24 23:43 40 MEQ Famotidine (Pepcid Tablet) 40 mg Q12HR 10/21/24 22:00 10/20/24 23:03 DC Famotidine (Pepcid Tablet) 40 mg Q12HR 10/20/24 23:15 10/21/24 01:05 DC 10/20/24 23:42 40 MG Famotidine (Pepcid Injection) 40 mg Q12HR 10/21/24 10:00 10/21/24 10:30 40 MG Naloxone HCl (Narcan) 0.2 mg PRN ONCE 10/21/24 15:00 10/21/24 15:19 DC Ephedrine Sulfate (ePHEDrine SULFATE) 10 mg PRN ONCE 10/21/24 15:00 10/21/24 15:19 DC Fentanyl Citrate 100 mcg ONCE ONCE 10/21/24 15:00 10/21/24 15:19 DC Sodium Chloride 500 ml @ 500 mls/hr Q1H PRN 10/21/24 17:15 Naloxone HCl (Narcan) 0.2 mg PRN ONCE 10/21/24 17:15 10/21/24 17:16 DC Ephedrine Sulfate (ePHEDrine SULFATE) 10 mg PRN ONCE 10/21/24 17:15 10/21/24 17:16 DC Fentanyl Citrate 100 mcg ONCE ONCE 10/21/24 17:15 10/21/24 17:16 DC Ropivacaine 200 ml @ 0 mls/hr UD 10/21/24 17:15 10/23/24 17:14 Oxytocin 1,000 ml @ 6 ml/hr Q24H 10/21/24 18:00 10/21/24 18:47 3 ML/HR Terbutaline Sulfate (Brethine Inj) 0.25 mg ONCE PRN 10/21/24 17:30 Laboratory Tests Test 10/20/24 21:08 10/20/24 20:36 Range/Units Urine Color Light-orange Yellow Urine Clarity Turbid H Clear Urine pH 7.0 5.0-9.0 Urine Specific [place] 1.013 1.001-1.035 Urine Protein Trace H Negative Urine Ketones Negative Negative Urine Blood Negative Negative /uL Urine Nitrite Negative Negative Urine Bilirubin Negative Negative Urine Urobilinogen Normal Negative mg/dL Urine Leukocyte Esterase Negative Negative /uL Urine RBC 1 0 - 4 /hpf Urine Microscopic WBC 3 0-5 /HPF Urine Squamous Epithelial Cells Few <5 /hpf Urine Amorphous Crystals Few None Seen /hpf Urine Bacteria Few H None Seen /hpf Urine Mucus Few None Seen Urine Creatinine 104.28 30.0-125.0 mg/dL Urine Protein/Creatinine Ratio 0.26 Urine Glucose Normal Normal mg/dL Urine Total Protein 27.4 H 1-14 mg/dL Urine Opiates Screen Neg NEGATIVE Urine Fentanyl Screen Neg NEGATIVE Urine Barbiturates Screen Neg NEGATIVE Urine Phencyclidine Screen Neg NEGATIVE Urine Amphetamines Screen Neg NEGATIVE Urine Benzodiazepines Screen Neg NEGATIVE Urine Cocaine Screen Neg NEGATIVE Urine Cannabinoids Screen Pos NEGATIVE Chlamydia trachomatis (KEYONNA) Pending Neisseria gonorrhoeae (KEYONNA) Pending White Blood Count 11.7 H 4.4-10.8 10^3/uL Red Blood Count 3.81 L 4.0-5.20 10^6/uL Hemoglobin 9.0 L 12.2-16.2 g/dL Hematocrit 27.2 #L 36.0-46.0 % Mean Corpuscular Volume 71.5 L 80.0-100.0 fL Mean Corpuscular Hemoglobin 23.6 L 28.0-32.0 pg Mean Corpuscular Hemoglobin Concent 33.0 32.0-36.0 g/dL Red Cell Distribution Width 15.7 H 11.8-14.3 % Platelet Count 234 140-450 10^3/uL Mean Platelet Volume 7.7 6.9-10.8 fL Neutrophils (%) (Auto) 73.3 37.0-80.0 % Lymphocytes (%) (Auto) 18.2 10.0-50.0 % Monocytes (%) (Auto) 7.4 0.0-12.0 % Eosinophils (%) (Auto) 0.8 0.0-7.0 % Basophils (%) (Auto) 0.3 0.0-2.0 % Neutrophils # (Auto) 8.5 1.6-8.6 10 ^3/uL Lymphocytes # (Auto) 2.1 0.4-5.4 10 ^3/uL Monocytes # (Auto) 0.9 0-1.3 10 ^3/uL Eosinophils # (Auto) 0.1 0-0.8 10 ^3/uL Basophils # (Auto) 0 0-0.2 10 ^3/uL Nucleated Red Blood Cells 0.0 % Prothrombin Time 10.1 9.3-11.8 sec Prothrombin Time INR 0.95 0.9-1.15 Activated Partial Thromboplast Time 29.9 24.5-34.5 SEC Sodium Level 140 136-145 mmol/L Potassium Level 3.4 L 3.5-5.1 mmol/L Chloride Level 109 H 98-107 mmol/L Carbon Dioxide Level 25 20-31 mmol/L Anion Gap 6 5-15 Blood Urea Nitrogen 6 L 9-23 mg/dL Creatinine 0.62 0.550-1.02 mg/dL Glomerular Filtration Rate Calc 125 >90 mL/min BUN/Creatinine Ratio 9.7 L 10.0-20.0 Serum Glucose 74 74-106 mg/dL Uric Acid 4.1 3.1-7.8 mg/dL Calcium Level 9.7 8.7-10.4 mg/dL Total Bilirubin 0.3 0.2-1.0 mg/dL Aspartate Amino Transferase (AST) 13 13-40 U/L Alanine Aminotransferase (ALT) 12 7-40 U/L Alkaline Phosphatase 143 H 46-116 U/L Total Protein 6.1 5.7-8.2 g/dL Albumin 3.7 3.2-4.8 g/dL Rapid Plasma Reagin Nonreactive NONREACTIVE Treponema pallidum Antibody Reactive *A Negative Hepatitis C Antibody Negative Negative Assessment Assessment 29 yo F IUP @ 38.2 wks IOL for Pre-E Pain management via epidural THC use in Iron deficiency anemia Asthma Category I EFM Intact membranes GBS neg Plan Plan Continue IOL w/ Cook's CRB Start IV pitocin per policy Continuous EFM Continue pain management via epidural 2 units PRBC on hold Frequent position changes in bed encouraged Limit SVE unless necessary Intrauterine resuscitation PRN Anticipate CNM co-managing with Dr Ortiz, who is managing PIH Plan discussed with: Patient Visit Coding OBGYN Date of Service: Oct 21, 2024 Billing Provider: KATIE PARMAR CNM BEAUTY SPECIALIST Common Visit Codes: [id number] INP/OBS CARE(MOD) MAURI TSANG MDWF Oct 21, 2024 17:52
[2024-10-21] MEDS: LACT. RINGERS/OXYTOCIN 20UNITS 1,000 ML IV SCH (18:47)
[2024-10-21] MEDS ORDERED: FAMOTIDINE 20 MG TAB PO SCH (22:00)
[2024-10-22] MEDS ORDERED: LIDOCAINE 1% INJ PF 5ML AMP ONE (06:23)
[2024-10-22] MEDS ORDERED: ROPIVACAINE 0.5% (5MG/ML) 20ML AMPULE IJ ONE (06:24)
--- NOTE | 2024-10-22 07:02 | DVHPN2 ---
Chief Complaints Patient reports: No new complaints, Feels better (post epidural) Nursing reports: No new complaints Objective Medications Current Medications Medications (Trade) Dose Ordered Sig/Vera Route PRN Reason Start Time Stop Time Status Last Admin Famotidine (Pepcid Injection) 40 mg Q12HR IV 10/21/24 10:00 10/21/24 10:30 Oxytocin 1,000 ml @ 6 ml/hr Q24H IV 10/21/24 18:00 10/21/24 18:47 Ropivacaine 200 ml @ 0 mls/hr UD EPI 10/21/24 17:15 10/23/24 17:14 Sodium Chloride 500 ml @ 500 mls/hr Q1H PRN IV FOR BP LESS THAN 90 10/21/24 17:15 Terbutaline Sulfate (Brethine Inj) 0.25 mg ONCE PRN SC Uterine tachysystole 10/21/24 17:30 Others ve-4cm/60/-2 Studies Laboratory Tests 10/20/24 20:36 Test 10/20/24 20:36 Range/Units Serum Glucose 74 74-106 mg/dL Ass/Plan Assessment INDUCTION OF LABOR Plan arom done clear fld cont with pitocin Visit Coding OBGYN Date of Service: Oct 22, 2024 Billing Provider: JESSICA ANDERSON DO CARDROOM DRAWING RUNNER Common Visit Codes: 77726-ACN/OBS SAME DATE (MOD) JESSICA ANDERSON DO Oct 22, 2024 07:02
[2024-10-22] MEDS ORDERED: ROPIVACAINE HCL 200 ML ONE (08:05)
[2024-10-22] MEDS: ceFAZolin 1GM/50ML 50 ML IV SCH (08:57)
[2024-10-22] MEDS: ROPIVACAINE HCL 200 ML ONE (09:10)
--- NOTE | 2024-10-22 10:52 | LDN2 ---
Labor and Delivery Note Date 10/22/24 Age 29 7 Para 3 AB 4 EDC 38+ EGA 38+ Diagnosis Pre-eclampsia, Anemia, Obesity, Hx of THC use Vaginal Delivery: VTX Vacuum Assisted: No Placenta: Spontaneous Sex: Female Weight Pending Apgars 7/8 Nuchal Cord Transected: No Amniotic Fluid: Clear Anesthesia Epidural Episiotomy: No EBL 150 mL Labs Laboratory Tests 05/15/23 21:26: Hepatitis B Surface Antigen Negative, HIV (1&2) Antibody Negative Blood Bank 10/20/24 20:36: Blood Type B POSITIVE Complications Nuchal cord x 1 Comments/Significant Med Rahel Called by RN for delivery, Dr Ortiz not available Upon arrival, baby was , nuchal cord x 1. delivery architect performed, atraumatic Baby apgars 7/8. Cord clamped after 60 seconds and cut Placenta delivered spontaneously, intact TXA and IV Pitocin given. Uterine fundus firm EBL 150 ml. Small 1st deg right periclitoral lac, superficial not requiring sutures. Mother doing well. Visit Coding OBGYN Date of Service: Oct 22, 2024 Billing Provider: SONIDO RONOEY DO STABLE CLEANER Common Visit Codes: [id number] INP/OBS CARE(HIGH) STABLE CLEANER Procedure Codes: 59450-VGVIB OB CARE,VAG DELIVERY SONIDO ROONEY DO Oct 22, 2024 10:52
[2024-10-22 13:00] VITALS: O2SAT 98
[2024-10-22] MEDS ORDERED: IBUPROFEN 800 MG TAB PO SCH ×2 (14:00→18:00)
[2024-10-22] MEDS ORDERED: TRANEXAMIC ACID 1,000 mg/10ml INJ VIAL IV ONE (14:00)
[2024-10-22 15:00] VITALS: BP 124/57; PULSE 89; RESP 16; TEMP 98.5; O2SAT 96
[2024-10-22] MEDS: LACT. RINGERS/OXYTOCIN 20UNITS 500 ML IV ONE ×2 (15:38)
[2024-10-22 16:25] LABS: Eosinophils # (auto) 0 10 ^3/uL (0-0.8); Eosinophils % (auto) 0.1 % (0.0-7.0); Lymphocytes # (auto) 1.3 10 ^3/uL (0.4-5.4); Mean Corpuscular Volume 71.7 fL (80.0-100.0); Monocytes # (auto) 0.9 10 ^3/uL (0-1.3)
[2024-10-22 16:27] LABS: Basophils # (auto) 0.1 10 ^3/uL (0-0.2); Basophils % (auto) 0.4 % (0.0-2.0); Hematocrit 27.2 % (36.0-46.0); Hemoglobin 8.7 g/dL (12.2-16.2); Lymphocytes % (auto) 7.2 % (10.0-50.0); Mean Corpuscular Hemoglobin 23.1 pg (28.0-32.0); Mean Corpuscular Hgb Conc. 32.2 g/dL (32.0-36.0); Monocytes % (auto) 5.1 % (0.0-12.0); Neutrophils # (auto) 15.9 10 ^3/uL (1.6-8.6); Neutrophils % (auto) 87.2 % (37.0-80.0); Nucleated Red Blood Cells % 0.1 %; Platelet Count (auto) 234 10^3/uL (140-450); Red Blood Cells 3.79 10^6/uL (4.0-5.20); Red Cell Distribution Width 15.5 % (11.8-14.3); White Blood Cell 18.3 10^3/uL (4.4-10.8)
[2024-10-22] MEDS: IBUPROFEN 600 MG TAB PO PRN (17:43)
[2024-10-22] MEDS: CEPHALEXIN 250 MG CAP PO SCH (17:43)
[2024-10-22 19:02] VITALS: BP 127/74; PULSE 97; RESP 16; TEMP 98.4; O2SAT 99
[2024-10-22 19:30] VITALS: O2SAT 98
[2024-10-22] MEDS: DOCUSATE SOD 100 MG CAP PO SCH (21:51)
[2024-10-22] MEDS: CALCIUM CARB 500 MG CHEW TAB PO PRN (21:52)
[2024-10-22] MEDS: ACETAMINOPHEN 325 MG TAB PO PRN (21:52)
[2024-10-22 23:30] VITALS: BP 121/73; PULSE 80; RESP 16; TEMP 97.7; O2SAT 99
[2024-10-23 03:07] LABS: Chlamydia Trachomatis, NAA Negative (Negative); Neisseria gonorrhoeae, NAA Negative (Negative)
[2024-10-23 03:21] VITALS: BP 137/82; PULSE 74; RESP 16; TEMP 98; O2SAT 99
[2024-10-23 07:06] VITALS: BP 138/91; PULSE 73; RESP 15; TEMP 98; O2SAT 98
--- NOTE | 2024-10-23 09:28 | DVHPN2 ---
Chief Complaints Patient reports: No new complaints, Feels better (post epidural) Nursing reports: No new complaints Objective Vitals Vital Signs Date Time Temp Pulse Resp B/P (MAP) Pulse Ox O2 Delivery O2 Flow Rate FiO2 10/23/24 07:17 Room Air 10/23/24 07:06 98.0 73 15 138/91 (107) 98 98.0 Medications Current Medications Medications (Trade) Dose Ordered Sig/Vera Route PRN Reason Start Time Stop Time Status Last Admin Acetaminophen (Tylenol Tablet) 650 mg Q4HP PRN PO MILD PAIN (1-3 PAIN SCALE) 10/22/24 12:30 10/22/24 21:52 Calcium Carbonate (Tums) 500 mg BID PRN PO FOR STOMACH DISTRESS 10/22/24 21:45 10/22/24 21:52 Docusate Sodium (Colace Capsule) 200 mg HS PO 10/22/24 22:00 10/22/24 21:51 Ibuprofen (Motrin Tablet) 600 mg Q6HP PRN PO MODERATE PAIN (4-6 PAIN SCALE) 10/22/24 17:00 10/22/24 17:43 Ibuprofen (Motrin Tablet) 800 mg Q6HR PO 10/22/24 14:00 Cancel General: Normal Lungs: Normal Cardiovascular: Normal Abdominal: Soft Musculoskeletal: No Muscle Spasm Studies Laboratory Tests 10/22/24 16:14 10/20/24 20:36 Test 10/20/24 20:36 Range/Units Serum Glucose 74 74-106 mg/dL Ass/Plan Assessment s/p Plan dc home fu 1wk Visit Coding OBGYN Date of Service: Oct 23, 2024 Billing Provider: JESSICA ANDERSON DO OPTICAL SYSTEMS ENGINEER Common Visit Codes: [id number] INP/OBS CARE(HIGH), 14571-KZP/OBS DISCH DAY <30MIN, 20793-OUD/OBS DISCH DAY >30MIN JESSICA ANDERSON DO Oct 23, 2024 09:27
--- NOTE | 2024-10-23 09:29 | DVHDS2 ---
Obstetrics Discharge Summary Obstetrics Discharge Summary Date of Admission: Oct 20, 2024 Date of Discharge: Oct 23, 2024 Reason For Admission: Induction of Labor Procedures: NST Intrapartum Procedures: Spontaneous vaginal deliv Procedures: None Operative Complicat: None Discharge Diagnosis: Term -Delivered Discharge Information: Activity (Other), Diet (Routine), Medications (None), Instructions (Routine), Discharge to (Home), Discarge date (10-23) Visit Coding OBGYN Date of Service: Oct 23, 2024 Billing Provider: JESSICA ANDERSON DO REVENUE SPECIALIST Common Visit Codes: 37645-WEZ/OBS DISCH DAY >30MIN JESSICA ANDERSON DO Oct 23, 2024 09:29
[2024-10-23 11:09] VITALS: BP 141/90; PULSE 91; RESP 16; TEMP 98.2; O2SAT 98
--- NOTE | 2024-10-23 13:21 | DVHINCON2 ---
Date of Service if different f: Oct 23, 2024 Time of Service: 10:00 Consultation ([place]) Labs Laboratory Tests Test 10/20/24 20:36 10/20/24 21:08 10/22/24 16:14 Prothrombin Time 10.1 sec (9.3-11.8) Prothromb Time International Ratio 0.95 (0.9-1.15) Activated Partial Thromboplast Time 29.9 SEC (24.5-34.5) Sodium Level 140 mmol/L (136-145) Potassium Level 3.4 mmol/L (3.5-5.1) Chloride Level 109 mmol/L (98-107) Carbon Dioxide Level 25 mmol/L (20-31) Anion Gap 6 (5-15) Blood Urea Nitrogen 6 mg/dL (9-23) Creatinine 0.62 mg/dL (0.550-1.02) Glomerular Filtration Rate Calc 125 mL/min (>90) BUN/Creatinine Ratio 9.7 (10.0-20.0) Serum Glucose 74 mg/dL (74-106) Uric Acid 4.1 mg/dL (3.1-7.8) Calcium Level 9.7 mg/dL (8.7-10.4) Total Bilirubin 0.3 mg/dL (0.2-1.0) Aspartate Amino Transf (AST/SGOT) 13 U/L (13-40) Alanine Aminotransferase (ALT/SGPT) 12 U/L (7-40) Alkaline Phosphatase 143 U/L (46-116) Total Protein 6.1 g/dL (5.7-8.2) Albumin 3.7 g/dL (3.2-4.8) Rapid Plasma Reagin Nonreactive (NONREACTIVE) Treponema pallidum Antibody Reactive (Negative) Hepatitis C Antibody Negative (Negative) Urine Color Light-orange (Yellow) Urine Clarity Turbid (Clear) Urine pH 7.0 (5.0-9.0) Urine Specific [place] 1.013 (1.001-1.035) Urine Protein Trace (Negative) Urine Ketones Negative (Negative) Urine Blood Negative /uL (Negative) Urine Nitrite Negative (Negative) Urine Bilirubin Negative (Negative) Urine Urobilinogen Normal mg/dL (Negative) Urine Leukocyte Esterase Negative /uL (Negative) Urine RBC 1 /hpf (0 - 4) Urine Microscopic WBC 3 /HPF (0-5) Urine Squamous Epithelial Cells Few /hpf (<5) Urine Amorphous Crystals Few /hpf (None Seen) Urine Bacteria Few /hpf (None Seen) Urine Mucus Few (None Seen) Urine Creatinine 104.28 mg/dL (30.0-125.0) Urine Protein/Creatinine Ratio 0.26 Urine Glucose Normal mg/dL (Normal) Urine Total Protein 27.4 mg/dL (1-14) Urine Opiates Screen Neg (NEGATIVE) Urine Fentanyl Screen Neg (NEGATIVE) Urine Barbiturates Screen Neg (NEGATIVE) Urine Phencyclidine Screen Neg (NEGATIVE) Urine Amphetamines Screen Neg (NEGATIVE) Urine Benzodiazepines Screen Neg (NEGATIVE) Urine Cocaine Screen Neg (NEGATIVE) Urine Cannabinoids Screen Pos (NEGATIVE) Chlamydia trachomatis ([place]) (LAB) Negative (Negative) Neisseria gonorrhoeae ([place]) (LAB) Negative (Negative) White Blood Count 18.3 10^3/uL (4.4-10.8) Red Blood Count 3.79 10^6/uL (4.0-5.20) Hemoglobin 8.7 g/dL (12.2-16.2) Hematocrit 27.2 % (36.0-46.0) Mean Corpuscular Volume 71.7 fL (80.0-100.0) Mean Corpuscular Hemoglobin 23.1 pg (28.0-32.0) Mean Corpuscular Hemoglobin Concent 32.2 g/dL (32.0-36.0) Red Cell Distribution Width 15.5 % (11.8-14.3) Platelet Count 234 10^3/uL (140-450) Mean Platelet Volume 7.7 fL (6.9-10.8) Neutrophils (%) (Auto) 87.2 % (37.0-80.0) Lymphocytes (%) (Auto) 7.2 % (10.0-50.0) Monocytes (%) (Auto) 5.1 % (0.0-12.0) Eosinophils (%) (Auto) 0.1 % (0.0-7.0) Basophils (%) (Auto) 0.4 % (0.0-2.0) Neutrophils # (Auto) 15.9 10 ^3/uL (1.6-8.6) Lymphocytes # (Auto) 1.3 10 ^3/uL (0.4-5.4) Monocytes # (Auto) 0.9 10 ^3/uL (0-1.3) Eosinophils # (Auto) 0 10 ^3/uL (0-0.8) Basophils # (Auto) 0.1 10 ^3/uL (0-0.2) Nucleated Red Blood Cells 0.1 % Appetite: Good Appearance: Stated age, Clean Psychomotor activity: WNL Behavioral: Cooperative Eye contact: Avoids Speech: WNL Affect: Guarded Mood: Irritable Thought processes: Linear/Goal-directed Thought content: WNL Suicidal ideations: Absent Homicidal ideations: Absent Orientation: Person, Place, Time, Situation Memory intact: Recent Intellect: Average Abstractability: WNL Concentration: Adequate Attention: Adequate Judgement: WNL Insight: Fair Vitals Vital Signs Date Time Temp Pulse Resp B/P (MAP) Pulse Ox O2 Delivery O2 Flow Rate FiO2 10/23/24 11:09 98.2 91 16 141/90 (107) 98 98.2 10/23/24 07:17 Room Air Current medications Current Medications Medications Dose Ordered Sig/Vera Route Start Time Stop Time Status Last Admin Dose Admin Lactated Ringer's 1,000 ml @ 125 mls/hr Q8H IV 10/20/24 20:15 10/22/24 00:53 125 MLS/HR Witch Consuelo 1 pad PRN PRN TOP 10/20/24 20:15 10/20/24 23:45 1 PAD Sodium Lauryl Sulfate 240 ml PRN PRN TOP 10/20/24 20:15 10/20/24 23:45 240 ML Benzocaine 1 applic PRN PRN TOP 10/20/24 20:15 10/20/24 23:45 1 APPLIC Lidocaine HCl 40 ml ONCE PRN IJ 10/20/24 20:15 Cancel Hydralazine HCl 5 mg Q20MP PRN IV 10/20/24 20:15 Lactated Ringer's 1,000 ml @ 125 mls/hr Q8H IV 10/20/24 21:00 Cancel Nalbuphine HCl 10 mg Q4HP PRN IV 10/20/24 21:00 Cancel Lidocaine HCl 20 ml ONCE PRN IJ 10/20/24 21:00 Cancel Sodium Chloride 500 ml @ 500 mls/hr Q1H PRN IV 10/21/24 17:15 Cancel Ropivacaine 200 ml @ 0 mls/hr UD EPI 10/21/24 17:15 10/23/24 17:14 Cancel Terbutaline Sulfate 0.25 mg ONCE PRN SC 10/21/24 17:30 Cancel Acetaminophen 650 mg Q4HP PRN PO 10/22/24 12:30 10/22/24 21:52 650 MG Docusate Sodium 200 mg HS PO 10/22/24 22:00 10/22/24 21:51 200 MG Ibuprofen 800 mg Q6HR PO 10/22/24 14:00 Cancel Ibuprofen 600 mg Q6HP PRN PO 10/22/24 17:00 10/22/24 17:43 600 MG Calcium Carbonate 500 mg BID PRN PO 10/22/24 21:45 10/22/24 21:52 500 MG Medication adjusted: No Diagnosis: hx of post depression, unspecified mood disorder, Cannabis use dependence Plan : This is 29-year-old female, recently delivered baby. She denies suicidal/homicidal ideation. She denies other mood or psychotic symptoms Patient is pending forensic social worker evaluation Patient does not meet LPS hold criteria and may discharge home after medical clearance and pending forensic social worker Discuss follow up for outpatient medication initiation and management Discussed to return to ED or 911 if suicidal/homicidal thoughts. Encouraged to avoid substances History of Present Illness Reason for Consult : Patient scored 11 on [place] rating scale. HPI : This is a 28-year-old female, G7 para 2. She presents to hospital for induction of labor and delivered health baby yesterday. Patient is evaluated via telepsychiatry. On evaluation, she was laying in bed with baby next her. She was slightly irritable, reports being tired and just waking up. She reports hx of depression with first baby after baby at 8days due to heart defect in 2021. She also has a [id number] baby at home. She remembers being scared and wanting nothing to happened to her baby. She denied having any suicidal/homicidal thoughts or psychotic symptoms then. She also repots hx of bipolar disorder and denies symptoms since 2013. Current ly, she also denies suicidal/homicidal ideation. She denies any auditory/visual hallucinations or paranoid thoughts now. She also reports having visual hallucinations of shadows in the past, last in 2013. She has no hx of psychotic symptoms with any of her or . She denies feeling depressed, hopeless, or anhedonia. She is excited for new baby and has good support at home. Past Psychiatric History : She reports hx of depression, bipolar, anxiety and PTSD. She reports one psych admissions years ago. She denies hx of suicide attempts. She does not have any current outpatient follow up. She reports hx of psychotropic medications years ago cannot recall names, currently, does not wish to use these. Past Medical History : Hx preeclampsia, and per H+P Social History : She reports stable relationship with bf and they live together. She reports he is good support system. Mom also helps her. She reports maternal aunt and cousin have unknown psychiatric diagnoses. Patient reports cannabis use since age 18 to help keep her calm. She reports [facility] was aware she was using cannabis. She denies any other substance use including nicotine. JORI DELANEY [facility] Oct 23, 2024 13:21
== END 2024-10-23 11:48 | disposition home or self-care (01) | DRG 806 ==
LOC: LDRP 19:45
PROVIDERS: ADMIT Obstetrics & Gynecology; ATTEND Obstetrics & Gynecology
PROC: 10E0XZZ Delivery of Products of Conception, External Approach (ICD-10-PCS; principal; 2024-10-22)
PROC: 10907ZC Drainage of Amniotic Fluid, Therapeutic from Products of Conception, Via Natural or Artificial Opening (ICD-10-PCS; 2024-10-22)
PROC: 3E033VJ Introduction of Other Hormone into Peripheral Vein, Percutaneous Approach (ICD-10-PCS; 2024-10-22)
PROC: 3E0DXGC Introduction of Other Therapeutic Substance into Mouth and Pharynx, External Approach (ICD-10-PCS; 2024-10-22)
PROC: 3E0R3BZ Introduction of Anesthetic Agent into Spinal Canal, Percutaneous Approach (ICD-10-PCS; 2024-10-22)
PROC: 00HU33Z Insertion of Infusion Device into Spinal Canal, Percutaneous Approach (ICD-10-PCS; 2024-10-22)
DX: O69.81X0 Labor and delivery complicated by cord around neck, without compression, not applicable or unspecified (principal); O99.324 Drug use complicating childbirth; Z37.0 Single live birth; O14.94 Unspecified pre-eclampsia, complicating childbirth; O99.02 Anemia complicating childbirth; O99.344 Other mental disorders complicating childbirth; O99.214 Obesity complicating childbirth; O99.52 Diseases of the respiratory system complicating childbirth; D50.9 Iron deficiency anemia, unspecified; Z3A.38 38 weeks gestation of pregnancy; J45.909 Unspecified asthma, uncomplicated; F43.10 Post-traumatic stress disorder, unspecified; F12.90 Cannabis use, unspecified, uncomplicated; F41.9 Anxiety disorder, unspecified; F31.9 Bipolar disorder, unspecified; Z88.6 Allergy status to analgesic agent; Z91.018 Allergy to other foods; Z79.899 Other long term (current) drug therapy
CPT/HCPCS: 36415; 59200; 59409; 62282; 80053; 80307; 81001; 81002; 82570; 84156; 84550; 85025; 85610; 85730; 86592; 86780; 86803; 86850; 86900; 86901; 86920; 94760; 96360; 96361; 96365; 96366; 96374; G0378; J2405; J2590; J3490